=== PATIENT | female | born 1980 | race Caucasian/White ===

== ENCOUNTER → 2017-12-17 | Outpatient (CLI) | payer BC ==
[2017-12-17 14:26] LABS: HCT 37.2 % (34.0-46.0); HGB 12.7 gm/dL (11.4-16.0); MCH 30.5 pg (25.0-35.0); MCHC 34.1 g/dL (31.0-37.0); MCV 89.4 fL (80.0-100.0); Mean Platelet Volume 6.7; Platelet Count 368 k/uL (150-450); RBC 4.16 m/uL (3.80-5.40); RDW 12.3 % (11.5-15.5); WBC 9.2 k/uL (3.8-10.6)
[2017-12-17 14:33] LABS: ALT 28 U/L (9-52); AST 21 U/L (14-36); Alkaline Phosphatase 55 U/L (38-126); Anion Gap 12 mmol/L; Blood Urea Nitrogen 15 mg/dL (7-17); Calcium 9.2 mg/dL (8.4-10.2); Carbon Dioxide 26 mmol/L (22-30); Chloride 105 mmol/L (98-107); Glucose 72 mg/dL (74-99); Potassium 4.1 mmol/L (3.5-5.1); Sodium 143 mmol/L (137-145); Total Bilirubin 0.1 mg/dL (0.2-1.3); Total Protein 6.3 g/dL (6.3-8.2)
[2017-12-17 14:50] LABS: T4, Free (Free Thyroxine) 1.13 ng/dL (0.78-2.19)
== END | disposition home or self-care (01) ==
LOC: LABWHC1 13:55
PROVIDERS: ATTEND Family Medicine
DX: I47.1 Supraventricular tachycardia (principal)
CPT/HCPCS: 36415; 80053; 82533; 84439; 84443; 84481; 85027

== ENCOUNTER 2018-08-03 17:36 | Emergency (ER) | payer OTHER ==
[2018-08-03] MEDS ORDERED: SODIUM CHLORIDE 0.9% 1,000 ML IV ONE (18:25)
--- NOTE | 2018-08-03 18:29 | ED ---
General Adult HPI - General Chief complaint: Chest Pain Stated complaint: Chest Pressure, Dizziness Time Seen by Provider: 08/03/18 18:02 Source: patient, RN notes reviewed, old records reviewed Mode of arrival: ambulatory Limitations: no limitations - History of Present Illness Initial comments: 38-year-old female history of sinus tachycardia, and POTS syndrome presents with complaints of flushed face, not feeling well, generalized weakness, nausea , palpitations. She does have these episodes on somewhat regular basis. She is currently on 10 mg propranolol twice daily. She did take an extra dose of propranolol today. No significant vomiting. No abdominal pain. She has had some associated chest tightness. Patient follows at outside hospital with both electrophysiology and endocrinology. - Related Data Home Medications Medication Instructions Recorded Confirmed Cholecalciferol [Vitamin D3] 1,000 unit PO DAILY 08/03/18 08/03/18 Magnesium 200 mg PO DAILY 08/03/18 08/03/18 Multivitamins, Thera [Multivitamin 1 tab PO DAILY 08/03/18 08/03/18 (formulary)] [place]-3 Fatty Acids [[place]-3] 1,000 mg PO DAILY 08/03/18 08/03/18 Propranolol [Inderal] 10 mg PO BID 08/03/18 08/03/18 Vitamin B Complex 1 cap PO DAILY 08/03/18 08/03/18 Allergies Allergy/AdvReac Type Severity Reaction Status Date / Time Penicillins Allergy Rash/Hives Verified 08/03/18 19:03 bupropion [From Wellbutrin] AdvReac Rapid Verified 08/03/18 19:03 Heart Rate Review of Systems ROS Statement: Those systems with pertinent positive or pertinent negative responses have been documented in the HPI. ROS Other: All systems not noted in ROS Statement are negative. Past Medical History Past Medical History: Hypertension Additional Past Medical History / Comment(s): POTS, SVT History of Any Multi-Drug Resistant Organisms: None Reported Past Surgical History: Section, Tonsillectomy Past Psychological History: No Psychological Hx Reported Smoking Status: Never smoker Past Alcohol Use History: None Reported Past Drug Use History: None Reported General Exam Limitations: no limitations General appearance: alert, in no apparent distress Head exam: Present: atraumatic, normocephalic Eye exam: Present: normal appearance, PERRL, EOMI ENT exam: Present: mucous membranes dry Neck exam: Present: normal inspection. Absent: tenderness, meningismus Respiratory exam: Present: normal lung sounds bilaterally. Absent: respiratory distress, wheezes Cardiovascular Exam: Present: regular rate, normal rhythm GI/Abdominal exam: Present: soft. Absent: distended, tenderness Extremities exam: Present: normal inspection, normal capillary refill. Absent: pedal edema, calf tenderness Neurological exam: Present: alert, oriented X3, CN II-XII intact. Absent: motor sensory deficit Psychiatric exam: Present: normal affect, normal mood Skin exam: Present: warm, dry, intact. Absent: cyanosis, diaphoretic Course Vital Signs 08/03/18 08/03/18 08/03/18 17:43 18:55 19:31 Temperature 99.4 F 99 F 98.5 F Pulse Rate 89 71 70 Respiratory 18 18 18 Rate Blood Pressure 141/100 138/93 122/73 O2 Sat by Pulse 97 97 98 Oximetry EKG Findings - EKG Comments: EKG Findings:: EKG: Normal sinus rhythm, incomplete right bundle-branch block, rate of 75, VT interval 146, QRS duration 98, QTC [address] segment changes. Medical Decision Making - Medical Decision Making 38-year-old female evaluated emergency department, EKG nonischemic and normal CBC, normal CMP, urinalysis negative, cardiac enzymes negative. Chest x-ray negative. After IV hydration, patient's symptoms of dizziness, chest tightness are all improved. She does have close outpatient follow-up with her specialist. She will continue to take her propranolol as prescribed. She will follow-up and return with worsening or changing symptoms. - Lab Data Result diagrams: 08/03/18 18:30 08/03/18 18:30 Lab Results 08/03/18 08/03/18 08/03/18 Range/Units 18:30 18:30 18:30 WBC 8.1 (3.8-10.6) k/uL RBC 4.77 (3.80-5.40) m/uL Hgb 13.7 (11.4-16.0) gm/dL Hct 41.6 (34.0-46.0) % MCV 87.2 (80.0-100.0) fL MCH 28.8 (25.0-35.0) pg MCHC 33.0 (31.0-37.0) g/dL RDW 12.5 (11.5-15.5) % Plt Count 379 (150-450) k/uL Neutrophils % 67 % Lymphocytes % 26 % Monocytes % 3 % Eosinophils % 2 % Basophils % 1 % Neutrophils # 5.4 (1.3-7.7) k/uL Lymphocytes # 2.1 (1.0-4.8) k/uL Monocytes # 0.2 (0-1.0) k/uL Eosinophils # 0.2 (0-0.7) k/uL Basophils # 0.1 (0-0.2) k/uL PT (9.0-12.0) sec INR (<1.2) APTT (22.0-30.0) sec Sodium 142 (137-145) mmol/L Potassium 3.9 (3.5-5.1) mmol/L Chloride 108 H (98-107) mmol/L Carbon Dioxide 25 (22-30) mmol/L Anion Gap 9 mmol/L BUN 10 (7-17) mg/dL Creatinine 0.60 (0.52-1.04) mg/dL Est GFR (CKD-EPI)AfAm >90 (>60 ml/min/1.73 sqM) Est GFR (CKD-EPI)NonAf >90 (>60 ml/min/1.73 sqM) Glucose 106 H (74-99) mg/dL Calcium 10.0 (8.4-10.2) mg/dL Magnesium 2.1 (1.6-2.3) mg/dL Total Bilirubin 0.4 (0.2-1.3) mg/dL AST 29 (14-36) U/L ALT 26 (9-52) U/L Alkaline Phosphatase 52 (38-126) U/L Total Creatine Kinase 64 (30-135) U/L CK-MB (CK-2) 0.3 (0.0-2.4) ng/mL CK-MB (CK-2) Rel Index 0.5 Troponin I <0.012 (0.000-0.034) ng/mL Total Protein 7.6 (6.3-8.2) g/dL Albumin 4.6 (3.5-5.0) g/dL Lipase 123 (23-300) U/L Urine Color Urine Appearance (Clear) Urine pH (5.0-8.0) Ur Specific [place] (1.001-1.035) Urine Protein (Negative) Urine Glucose (UA) (Negative) Urine Ketones (Negative) Urine Blood (Negative) Urine Nitrite (Negative) Urine Bilirubin (Negative) Urine Urobilinogen (<2.0) mg/dL Ur Leukocyte Esterase (Negative) 08/03/18 08/03/18 Range/Units 18:30 18:30 WBC (3.8-10.6) k/uL RBC (3.80-5.40) m/uL Hgb (11.4-16.0) gm/dL Hct (34.0-46.0) % MCV (80.0-100.0) fL MCH (25.0-35.0) pg MCHC (31.0-37.0) g/dL RDW (11.5-15.5) % Plt Count (150-450) k/uL Neutrophils % % Lymphocytes % % Monocytes % % Eosinophils % % Basophils % % Neutrophils # (1.3-7.7) k/uL Lymphocytes # (1.0-4.8) k/uL Monocytes # (0-1.0) k/uL Eosinophils # (0-0.7) k/uL Basophils # (0-0.2) k/uL PT 10.0 (9.0-12.0) sec INR 0.9 (<1.2) APTT 27.1 (22.0-30.0) sec Sodium (137-145) mmol/L Potassium (3.5-5.1) mmol/L Chloride (98-107) mmol/L Carbon Dioxide (22-30) mmol/L Anion Gap mmol/L BUN (7-17) mg/dL Creatinine (0.52-1.04) mg/dL Est GFR (CKD-EPI)AfAm (>60 ml/min/1.73 sqM) Est GFR (CKD-EPI)NonAf (>60 ml/min/1.73 sqM) Glucose (74-99) mg/dL Calcium (8.4-10.2) mg/dL Magnesium (1.6-2.3) mg/dL Total Bilirubin (0.2-1.3) mg/dL AST (14-36) U/L ALT (9-52) U/L Alkaline Phosphatase (38-126) U/L Total Creatine Kinase (30-135) U/L CK-MB (CK-2) (0.0-2.4) ng/mL CK-MB (CK-2) Rel Index Troponin I (0.000-0.034) ng/mL Total Protein (6.3-8.2) g/dL Albumin (3.5-5.0) g/dL Lipase (23-300) U/L Urine Color Colorless Urine Appearance Clear (Clear) Urine pH 7.5 (5.0-8.0) Ur Specific [place] 1.002 (1.001-1.035) Urine Protein Negative (Negative) Urine Glucose (UA) Negative (Negative) Urine Ketones Negative (Negative) Urine Blood Negative (Negative) Urine Nitrite Negative (Negative) Urine Bilirubin Negative (Negative) Urine Urobilinogen <2.0 (<2.0) mg/dL Ur Leukocyte Esterase Negative (Negative) Disposition Clinical Impression: Dehydration, POTS (postural orthostatic tachycardia syndrome) Disposition: HOME SELF-CARE Condition: Good Instructions (If sedation given, give patient instructions): Dehydration (ED) Is patient prescribed a controlled substance at d/c from ED?: No Referrals: Reid Ponce MD [Primary Care Provider] - 1-2 days Time of Disposition: 20:27
[2018-08-03 19:07] LABS: Basophils # (A) 0.1 k/uL (0-0.2); Basophils % (A) 1 %; Eosinophils # (A) 0.2 k/uL (0-0.7); Eosinophils % (A) 2 %; HCT 41.6 % (34.0-46.0); HGB 13.7 gm/dL (11.4-16.0); Lymphocytes # (A) 2.1 k/uL (1.0-4.8); Lymphocytes % (A) 26 %; MCH 28.8 pg (25.0-35.0); MCV 87.2 fL (80.0-100.0); Mean Platelet Volume 6.7; Monocytes # (A) 0.2 k/uL (0-1.0); Monocytes % (A) 3 %; Neutrophils # (A) 5.4 k/uL (1.3-7.7); Neutrophils % (A) 67 %; Platelet Count 379 k/uL (150-450); RBC 4.77 m/uL (3.80-5.40); RDW 12.5 % (11.5-15.5); WBC 8.1 k/uL (3.8-10.6)
[2018-08-03 19:08] LABS: Appearance,Urine Clear (Clear); Bilirubin,Urine Negative (Negative); Blood,Urine Negative (Negative); Color,Urine Colorless; Glucose,Urine (UA) Negative (Negative); Ketones,Urine Negative (Negative); Leukocyte Esterase,Urine Negative (Negative); Nitrite,Urine Negative (Negative); PH, Urine 7.5 (5.0-8.0); Protein,Urine Negative (Negative); Specific Gravity,Urine 1.002 (1.001-1.035); Urobilinogen,Urine <2.0 mg/dL (<2.0)
[2018-08-03 19:16] LABS: Creatine Kinase 64 U/L (30-135)
[2018-08-03 19:18] LABS: ALT 26 U/L (9-52); AST 29 U/L (14-36); Albumin 4.6 g/dL (3.5-5.0); Alkaline Phosphatase 52 U/L (38-126); Anion Gap 9 mmol/L; Blood Urea Nitrogen 10 mg/dL (7-17); Carbon Dioxide 25 mmol/L (22-30); Chloride 108 mmol/L (98-107); Glucose 106 mg/dL (74-99); Lipase 123 U/L (23-300); Magnesium 2.1 mg/dL (1.6-2.3); Potassium 3.9 mmol/L (3.5-5.1); Sodium 142 mmol/L (137-145); Total Bilirubin 0.4 mg/dL (0.2-1.3); Total Protein 7.6 g/dL (6.3-8.2)
[2018-08-03 19:29] LABS: Creatine Kinase MB 0.3 ng/mL (0.0-2.4); Troponin I <0.012 ng/mL (0.000-0.034)
[2018-08-03 19:34] VITALS: TEMP 98.5
[2018-08-03 19:35] LABS: INR 0.9 (<1.2); Partial Thromboplastin Time 27.1 sec (22.0-30.0)
--- NOTE | 2018-08-03 19:57 | XR ---
EXAMINATION: XR chest 2V DATE AND TIME: 08/03/2018 7:07 PM CLINICAL INDICATION: PHH; Chest Pain TECHNIQUE: Departmental protocol COMPARISON: None FINDINGS: The lungs are clear. The pleural spaces are negative. The cardiac silhouette is not enlarged. The remainder of the mediastinal silhouette is unremarkable. The skeletal structures and soft tissues are negative for acute findings. IMPRESSION: NO ACUTE PROCESS.
[2018-08-03 21:11] VITALS: BP 120/81; PULSE 74; RESP 17
== END 2018-08-03 21:11 | disposition home or self-care (01) ==
LOC: EC 17:36
DX: E86.0 Dehydration (principal); I49.8 Other specified cardiac arrhythmias; R07.89 Other chest pain; R42 Dizziness and giddiness; I10 Essential (primary) hypertension; Z79.899 Other long term (current) drug therapy; Z88.0 Allergy status to penicillin; Z88.8 Allergy status to other drugs, medicaments and biological substances
CPT/HCPCS: 36415; 71046; 80053; 81003; 82550; 82553; 83520; 83690; 83735; 84484; 85025; 85610; 85730; 93005; 96360; 96361; 99285

== ENCOUNTER 2018-08-07 19:01 | Emergency (ER) | payer OTHER ==
[2018-08-07 19:09] VITALS: TEMP 99.1
[2018-08-07] MEDS ORDERED: ACETAMINOPHEN TAB 325 MG TAB PO STA (19:14)
--- NOTE | 2018-08-07 19:31 | XR ---
EXAMINATION TYPE: XR chest 2V DATE OF EXAM: 08/07/2018 COMPARISON: NONE HISTORY: Short of breath TECHNIQUE: Frontal and lateral views of the chest are obtained. FINDINGS: Heart and mediastinum are normal. Lungs are clear. Diaphragm is normal. Bony thorax appear s normal. IMPRESSION: Normal chest.
[2018-08-07] MEDS ORDERED: SODIUM CHLORIDE 0.9% 1,000 ML IV ONE (19:42)
[2018-08-07 20:18] LABS: Basophils # (A) 0.1 k/uL (0-0.2); Basophils % (A) 1 %; Eosinophils # (A) 0.2 k/uL (0-0.7); Eosinophils % (A) 3 %; HCT 39.6 % (34.0-46.0); HGB 12.5 gm/dL (11.4-16.0); Lymphocytes # (A) 1.4 k/uL (1.0-4.8); Lymphocytes % (A) 16 %; MCH 27.5 pg (25.0-35.0); MCHC 31.5 g/dL (31.0-37.0); MCV 87.3 fL (80.0-100.0); Mean Platelet Volume 6.1; Monocytes # (A) 0.4 k/uL (0-1.0); Monocytes % (A) 4 %; Neutrophils # (A) 6.5 k/uL (1.3-7.7); Neutrophils % (A) 75 %; Platelet Count 346 k/uL (150-450); RBC 4.53 m/uL (3.80-5.40); RDW 12.3 % (11.5-15.5); WBC 8.7 k/uL (3.8-10.6)
[2018-08-07 20:28] LABS: ALT 34 U/L (9-52); AST 32 U/L (14-36); Albumin 4.3 g/dL (3.5-5.0); Alkaline Phosphatase 45 U/L (38-126); Anion Gap 7 mmol/L; Blood Urea Nitrogen 8 mg/dL (7-17); Calcium 9.5 mg/dL (8.4-10.2); Carbon Dioxide 25 mmol/L (22-30); Chloride 105 mmol/L (98-107); Glucose 107 mg/dL (74-99); Potassium 4.7 mmol/L (3.5-5.1); Sodium 137 mmol/L (137-145); Total Bilirubin 0.6 mg/dL (0.2-1.3); Total Protein 7.1 g/dL (6.3-8.2)
[2018-08-07] MEDS ORDERED: OSELTAMIVIR 75 MG CAP PO STA (20:34)
--- NOTE | 2018-08-07 20:47 | ED ---
URI HPI - General Chief Complaint: Upper Respiratory Infection Stated Complaint: SOB/high heart rate Time Seen by Provider: 08/07/18 19:14 Source: patient Mode of arrival: ambulatory Limitations: no limitations - History of Present Illness Initial Comments: 38-year-old female past history of pots disorder as a day for chief complaint of sore throat, congestion, elevated heart rate. Patient states she has been diagnosed with POTS syndrome. She is really scheduled with endocrinology as well as a POTs specialist at [facility] in [place]. Patient states she has struggled with elevated heart rate since diagnosis. Patient also admits to having chest pressure, elevated heart rate as well as elevated blood pressure readings are not since her diagnosis. Patient denies any changes in the pressure. Patient states that for the past 2-3 days she has been experiencing cough, congestion, sore throat as well as elevation of heart rate that seemed increase from baseline. Patient amidst chills, does not know having fever however states she felt warm. Remainder of ROS negative, patient denies any dyspnea, dyspnea on exertion, lower extremity edema, hemoptysis, hematemesis, vomiting, doubt pain, nausea, vomiting, diarrhea, headache, increasing dizziness. Upon arrival patient is well-appearing, heart rate and blood pressure elevated. Patient does have low-grade fever. - Related Data Home Medications Medication Instructions Recorded Confirmed Cholecalciferol [Vitamin D3] 1,000 unit PO DAILY 08/03/18 08/07/18 Magnesium 200 mg PO DAILY 08/03/18 08/07/18 Propranolol [Inderal] 10 mg PO BID 08/03/18 08/07/18 Vitamin B Complex 1 cap PO DAILY 08/03/18 08/07/18 Allergies Allergy/AdvReac Type Severity Reaction Status Date / Time Penicillins Allergy Rash/Hives Verified 08/07/18 19:48 bupropion [From Wellbutrin] AdvReac Rapid Verified 08/07/18 19:48 Heart Rate Review of Systems ROS Statement: Those systems with pertinent positive or pertinent negative responses have been documented in the HPI. ROS Other: All systems not noted in ROS Statement are negative. Past Medical History Past Medical History: Hypertension Additional Past Medical History / Comment(s): POTS, SVT History of Any Multi-Drug Resistant Organisms: None Reported Past Surgical History: Section, Tonsillectomy Past Psychological History: No Psychological Hx Reported Smoking Status: Never smoker Past Alcohol Use History: None Reported Past Drug Use History: None Reported General Exam - General Exam Comments Initial Comments: General: The patient is awake and alert, in no distress, and does not appear acutely ill. Eye: Pupils are equal, round and reactive to light, extra-ocular movements are intact. No nystagmus. There is normal conjunctiva bilaterally. No signs of icterus. Ears, nose, mouth and throat: There are moist mucous membranes and no oral lesions. Pharynx mildly erythematous. Uvula midline. No anterior cervical adenopathy. Post nasal drip present. Nasal congestion noted Neck: The neck is supple, there is no tenderness or JVD. Cardiovascular: There is a regular rate and rhythm. No murmur, rub or gallop is appreciated. Respiratory: Lungs are clear to auscultation, respirations are non-labored, breath sounds are equal. No wheezes, stridor, rales, or rhonchi. Gastrointestinal: Soft, non-distended, non-tender abdomen without masses or organomegaly noted. There is no rebound or guarding present. No CVA tenderness. Bowel sounds are unremarkable. Musculoskeletal: Normal ROM, no tenderness. Strength 5/5. Sensation intact. Pulses equal bilaterally 2+. Neurological: A&O x 3. CN II-XII intact, There are no obvious motor or sensory deficits. Coordination appears grossly intact. Speech is normal. Skin: Skin is warm and dry and no rashes or lesions are noted. (-) [place]. No LE edema. Psychiatric: Cooperative, appropriate mood & affect, normal judgment. Limitations: no limitations Course Vital Signs 08/07/18 08/07/18 19:05 21:49 Temperature 99.1 F Pulse Rate 102 H 88 Respiratory 20 18 Rate Blood Pressure 158/97 144/92 O2 Sat by Pulse 100 98 Oximetry Medical Decision Making - Medical Decision Making Patient influenza a positive. This is consistent with increased elevation of heart rate most likely due to fever at home. Patient given fluid bolus. Patient appears well, chest x-ray negative. Laboratory studies unremarkable. No elevation of white count. Patient does not appear toxic. Patient states after fluid bolus symptoms feel better, she was also given Tylenol. At this time I do feel patient is stable for discharge with outpatient Intermedic treatment treatment or influenza. Patient prescription plan. Patient refuses take Tamiflu. Patient discharged stable condition after discussing case with attending provider Dr. Govea - Lab Data Result diagrams: 08/07/18 20:09 08/07/18 20:09 Lab Results 08/07/18 08/07/18 08/07/18 Range/Units 19:50 20:09 20:09 WBC 8.7 (3.8-10.6) k/uL RBC 4.53 (3.80-5.40) m/uL Hgb 12.5 (11.4-16.0) gm/dL Hct 39.6 (34.0-46.0) % MCV 87.3 (80.0-100.0) fL MCH 27.5 (25.0-35.0) pg MCHC 31.5 (31.0-37.0) g/dL RDW 12.3 (11.5-15.5) % Plt Count 346 (150-450) k/uL Neutrophils % 75 % Lymphocytes % 16 % Monocytes % 4 % Eosinophils % 3 % Basophils % 1 % Neutrophils # 6.5 (1.3-7.7) k/uL Lymphocytes # 1.4 (1.0-4.8) k/uL Monocytes # 0.4 (0-1.0) k/uL Eosinophils # 0.2 (0-0.7) k/uL Basophils # 0.1 (0-0.2) k/uL Sodium 137 (137-145) mmol/L Potassium 4.7 (3.5-5.1) mmol/L Chloride 105 (98-107) mmol/L Carbon Dioxide 25 (22-30) mmol/L Anion Gap 7 mmol/L BUN 8 (7-17) mg/dL Creatinine 0.59 (0.52-1.04) mg/dL Est GFR (CKD-EPI)AfAm >90 (>60 ml/min/1.73 sqM) Est GFR (CKD-EPI)NonAf >90 (>60 ml/min/1.73 sqM) Glucose 107 H (74-99) mg/dL Calcium 9.5 (8.4-10.2) mg/dL Total Bilirubin 0.6 (0.2-1.3) mg/dL AST 32 (14-36) U/L ALT 34 (9-52) U/L Alkaline Phosphatase 45 (38-126) U/L Troponin I (0.000-0.034) ng/mL Total Protein 7.1 (6.3-8.2) g/dL Albumin 4.3 (3.5-5.0) g/dL Influenza Type A RNA Detected H (Not Detectd) Influenza Type B (PCR) Not Detected (Not Detectd) 08/07/18 Range/Units 20:09 WBC (3.8-10.6) k/uL RBC (3.80-5.40) m/uL Hgb (11.4-16.0) gm/dL Hct (34.0-46.0) % MCV (80.0-100.0) fL MCH (25.0-35.0) pg MCHC (31.0-37.0) g/dL RDW (11.5-15.5) % Plt Count (150-450) k/uL Neutrophils % % Lymphocytes % % Monocytes % % Eosinophils % % Basophils % % Neutrophils # (1.3-7.7) k/uL Lymphocytes # (1.0-4.8) k/uL Monocytes # (0-1.0) k/uL Eosinophils # (0-0.7) k/uL Basophils # (0-0.2) k/uL Sodium (137-145) mmol/L Potassium (3.5-5.1) mmol/L Chloride (98-107) mmol/L Carbon Dioxide (22-30) mmol/L Anion Gap mmol/L BUN (7-17) mg/dL Creatinine (0.52-1.04) mg/dL Est GFR (CKD-EPI)AfAm (>60 ml/min/1.73 sqM) Est GFR (CKD-EPI)NonAf (>60 ml/min/1.73 sqM) Glucose (74-99) mg/dL Calcium (8.4-10.2) mg/dL Total Bilirubin (0.2-1.3) mg/dL AST (14-36) U/L ALT (9-52) U/L Alkaline Phosphatase (38-126) U/L Troponin I <0.012 (0.000-0.034) ng/mL Total Protein (6.3-8.2) g/dL Albumin (3.5-5.0) g/dL Influenza Type A RNA (Not Detectd) Influenza Type B (PCR) (Not Detectd) - EKG Data EKG Comments: A 12-lead EKG was performed and shows the following: Rate is 90bpm, and rhythm is normal sinus. There is normal R-wave progression. ST segments have no elevation or depression, and ND segments appear normal. Incompleted RBBB redemonstrated no changes from previous EKG, no changes 08/03/18. Disposition Clinical Impression: Influenza A, POTS (postural orthostatic tachycardia syndrome) Disposition: HOME SELF-CARE Condition: Good Instructions (If sedation given, give patient instructions): Influenza (ED) Additional Instructions: Please use medication as discussed. Please follow-up with family doctor in the next 2 days. Please follow-up with both Endocrine and POTS physicians as currently scheduled. Please return to emergency room if the symptoms increase or worsen or for any other concerns. Is patient prescribed a controlled substance at d/c from ED?: No Referrals: None,Stated [Primary Care Provider] - 1-2 days Josie Davis MD [STAFF PHYSICIAN] - 1-2 days Time of Disposition: 20:47
[2018-08-07 21:50] VITALS: PULSE 88; RESP 18
[2018-08-07 21:55] VITALS: BP 144/92
== END 2018-08-07 21:49 | disposition home or self-care (01) ==
LOC: EC 19:01
DX: J10.1 Influenza due to other identified influenza virus with other respiratory manifestations (principal); I49.8 Other specified cardiac arrhythmias; I10 Essential (primary) hypertension; Z79.899 Other long term (current) drug therapy; Z88.0 Allergy status to penicillin; Z88.8 Allergy status to other drugs, medicaments and biological substances
CPT/HCPCS: 36415; 71046; 80053; 84484; 85025; 87502; 93005; 96360; 99285

== ENCOUNTER 2019-02-28 23:14 | Emergency (ER) | payer OTHER ==
--- NOTE | 2019-02-28 23:32 | ED ---
General Adult HPI - General Stated complaint: tachycardia,high bp Time Seen by Provider: 02/28/19 23:16 Source: patient Mode of arrival: ambulatory Limitations: no limitations - History of Present Illness Initial comments: This patient is a 39-year-old woman who presents because she noted that she was having tachycardia and elevated blood pressure at home. The patient states that she has POTS. She states that it has recently started flaring up and she gets these exact manifestations as well as having feelings like she is having waves of adrenaline come over her. She tried using her home medications and when there was no relief she presented here. She states that in the past she has had pretty good results after obtaining IV fluids. -: hour(s) - Related Data Home Medications Medication Instructions Recorded Confirmed Cholecalciferol [Vitamin D3] 1,000 unit PO DAILY 08/03/18 08/07/18 Magnesium 200 mg PO DAILY 08/03/18 08/07/18 Propranolol [Inderal] 10 mg PO BID 08/03/18 08/07/18 Vitamin B Complex 1 cap PO DAILY 08/03/18 08/07/18 Allergies Allergy/AdvReac Type Severity Reaction Status Date / Time Penicillins Allergy Rash/Hives Verified 08/07/18 19:48 bupropion [From Wellbutrin] AdvReac Rapid Verified 08/07/18 19:48 Heart Rate Review of Systems ROS Statement: Those systems with pertinent positive or pertinent negative responses have been documented in the HPI. ROS Other: All systems not noted in ROS Statement are negative. Constitutional: Denies: fever, chills Respiratory: Denies: cough, dyspnea Cardiovascular: Reports: palpitations. Denies: chest pain, dyspnea on exertion, orthopnea, edema, syncope Gastrointestinal: Denies: abdominal pain, nausea, vomiting Genitourinary: Denies: dysuria, hematuria Musculoskeletal: Denies: back pain Skin: Denies: rash Neurological: Denies: headache, weakness, numbness Psychiatric: Reports: anxiety Past Medical History Past Medical History: Hypertension Additional Past Medical History / Comment(s): POTS, SVT History of Any Multi-Drug Resistant Organisms: None Reported Past Surgical History: Section, Tonsillectomy Past Psychological History: No Psychological Hx Reported Smoking Status: Never smoker Past Alcohol Use History: None Reported Past Drug Use History: None Reported General Exam General appearance: alert, in no apparent distress Head exam: Present: atraumatic, normocephalic Eye exam: Present: normal appearance. Absent: scleral icterus, conjunctival injection ENT exam: Present: mucous membranes dry Neck exam: Present: normal inspection Respiratory exam: Present: normal lung sounds bilaterally. Absent: respiratory distress, wheezes, rales, rhonchi, stridor Cardiovascular Exam: Present: regular rate, normal rhythm, normal heart sounds. Absent: systolic murmur, diastolic murmur, rubs, gallop GI/Abdominal exam: Present: soft. Absent: distended, tenderness, guarding, rebound Extremities exam: Present: normal inspection, normal capillary refill. Absent: pedal edema, calf tenderness Back exam: Present: normal inspection Neurological exam: Present: alert Skin exam: Present: warm, dry, intact, normal color. Absent: rash Course Vital Signs 02/28/19 02/28/19 03/01/19 23:16 23:45 00:20 Temperature 98.2 F Pulse Rate 97 90 87 Pulse Rate [ 95 Spray I Painter ] Respiratory 20 18 20 Rate Blood Pressure 130/94 117/78 O2 Sat by Pulse 100 98 100 Oximetry 03/01/19 01:40 Temperature 98.3 F Pulse Rate 84 Pulse Rate [ Spray I Painter ] Respiratory 18 Rate Blood Pressure 129/70 O2 Sat by Pulse 99 Oximetry EKG Findings - EKG Comments: EKG Findings:: Low-voltage QRS complex - EKG Results: EKG: sinus rhythm (Rate 96 bpm), normal axis - Blocks, [place], Hypertrophy, ST Abn: AV and intraventricular conduction: right bundle branch block (fixed/intermittent, complete/incomplete) (Incomplete right bundle branch block) Repolarization changes or abnormalities: nonspecific abnormality, ST segment, and/or T wave Medical Decision Making - Medical Decision Making Patient is feeling better following fluid infusion and requests to go home. Vital signs and studies are stable. Patient to follow-up with her primary physi wiliam. - Lab Data Result diagrams: 02/28/19 23:41 02/28/19 23:41 Lab Results 02/28/19 02/28/19 Range/Units 23:41 23:41 WBC 10.8 H (3.8-10.6) k/uL RBC 4.23 (3.80-5.40) m/uL Hgb 12.5 (11.4-16.0) gm/dL Hct 36.5 (34.0-46.0) % MCV 86.3 (80.0-100.0) fL MCH 29.5 (25.0-35.0) pg MCHC 34.2 (31.0-37.0) g/dL RDW 12.7 (11.5-15.5) % Plt Count 342 (150-450) k/uL Neutrophils % 62 % Lymphocytes % 30 % Monocytes % 5 % Eosinophils % 1 % Basophils % 1 % Neutrophils # 6.7 (1.3-7.7) k/uL Lymphocytes # 3.2 (1.0-4.8) k/uL Monocytes # 0.6 (0-1.0) k/uL Eosinophils # 0.1 (0-0.7) k/uL Basophils # 0.1 (0-0.2) k/uL Sodium 139 (137-145) mmol/L Potassium 3.8 (3.5-5.1) mmol/L Chloride 106 (98-107) mmol/L Carbon Dioxide 26 (22-30) mmol/L Anion Gap 7 mmol/L BUN 11 (7-17) mg/dL Creatinine 0.60 (0.52-1.04) mg/dL Est GFR (CKD-EPI)AfAm >90 (>60 ml/min/1.73 sqM) Est GFR (CKD-EPI)NonAf >90 (>60 ml/min/1.73 sqM) Glucose 112 H (74-99) mg/dL Calcium 9.1 (8.4-10.2) mg/dL Magnesium 1.9 (1.6-2.3) mg/dL Total Bilirubin 0.1 L (0.2-1.3) mg/dL AST 22 (14-36) U/L ALT 16 (9-52) U/L Alkaline Phosphatase 74 (38-126) U/L Total Protein 6.8 (6.3-8.2) g/dL Albumin 4.1 (3.5-5.0) g/dL Disposition Clinical Impression: Palpitations Disposition: HOME SELF-CARE Condition: Good Instructions (If sedation given, give patient instructions): Heart Palpitations (ED) Is patient prescribed a controlled substance at d/c from ED?: No Referrals: Kerline Aragon DO [Primary Care Provider] - 1-2 days
[2019-02-28] MEDS ORDERED: SODIUM CHLORIDE 0.9% 2,000 ML IV ONE (23:44)
[2019-03-01 00:03] LABS: Basophils # (A) 0.1 k/uL (0-0.2); Basophils % (A) 1 %; Eosinophils # (A) 0.1 k/uL (0-0.7); Eosinophils % (A) 1 %; HCT 36.5 % (34.0-46.0); HGB 12.5 gm/dL (11.4-16.0); Lymphocytes # (A) 3.2 k/uL (1.0-4.8); Lymphocytes % (A) 30 %; MCH 29.5 pg (25.0-35.0); MCHC 34.2 g/dL (31.0-37.0); MCV 86.3 fL (80.0-100.0); Mean Platelet Volume 6.8; Monocytes # (A) 0.6 k/uL (0-1.0); Monocytes % (A) 5 %; Neutrophils # (A) 6.7 k/uL (1.3-7.7); Neutrophils % (A) 62 %; Platelet Count 342 k/uL (150-450); RBC 4.23 m/uL (3.80-5.40); RDW 12.7 % (11.5-15.5); WBC 10.8 k/uL (3.8-10.6)
[2019-03-01 00:12] LABS: ALT 16 U/L (9-52); AST 22 U/L (14-36); African American GFR (CKD) >90 (>60 ml/min/1.73 sqM); Albumin 4.1 g/dL (3.5-5.0); Alkaline Phosphatase 74 U/L (38-126); Anion Gap 7 mmol/L; Blood Urea Nitrogen 11 mg/dL (7-17); Calcium 9.1 mg/dL (8.4-10.2); Carbon Dioxide 26 mmol/L (22-30); Chloride 106 mmol/L (98-107); Glucose 112 mg/dL (74-99); Magnesium 1.9 mg/dL (1.6-2.3); Non-African American GFR(CKD) >90 (>60 ml/min/1.73 sqM); Potassium 3.8 mmol/L (3.5-5.1); Sodium 139 mmol/L (137-145); Total Bilirubin 0.1 mg/dL (0.2-1.3); Total Protein 6.8 g/dL (6.3-8.2)
[2019-03-01 01:42] VITALS: BP 129/70; PULSE 84; RESP 18; TEMP 98.3
== END 2019-03-01 01:42 | disposition home or self-care (01) ==
LOC: EC 23:14
DX: R00.2 Palpitations (principal); R00.0 Tachycardia, unspecified; I10 Essential (primary) hypertension; Z79.899 Other long term (current) drug therapy; Z88.0 Allergy status to penicillin; Z88.8 Allergy status to other drugs, medicaments and biological substances
CPT/HCPCS: 36415; 80053; 83735; 85025; 93005; 96360; 96361; 99285

== ENCOUNTER 2019-03-06 18:59 | Emergency (ER) | payer OTHER ==
[2019-03-06 19:04] VITALS: TEMP 98
[2019-03-06] MEDS ORDERED: SODIUM CHLORIDE 0.9% 1,000 ML IV STA (19:31)
[2019-03-06 20:03] LABS: Basophils # (A) 0.1 k/uL (0-0.2); Basophils % (A) 1 %; Eosinophils # (A) 0.1 k/uL (0-0.7); Eosinophils % (A) 1 %; HCT 41.2 % (34.0-46.0); HGB 13.8 gm/dL (11.4-16.0); Lymphocytes # (A) 4.4 k/uL (1.0-4.8); Lymphocytes % (A) 39 %; MCH 29.1 pg (25.0-35.0); MCHC 33.5 g/dL (31.0-37.0); MCV 86.8 fL (80.0-100.0); Mean Platelet Volume 6.8; Monocytes # (A) 0.5 k/uL (0-1.0); Monocytes % (A) 4 %; Neutrophils # (A) 6.1 k/uL (1.3-7.7); Neutrophils % (A) 54 %; Platelet Count 368 k/uL (150-450); RBC 4.74 m/uL (3.80-5.40); RDW 12.9 % (11.5-15.5); WBC 11.4 k/uL (3.8-10.6)
[2019-03-06 20:12] LABS: ALT 22 U/L (9-52); AST 21 U/L (14-36); African American GFR (CKD) >90 (>60 ml/min/1.73 sqM); Albumin 4.5 g/dL (3.5-5.0); Alkaline Phosphatase 53 U/L (38-126); Anion Gap 10 mmol/L; Blood Urea Nitrogen 14 mg/dL (7-17); Carbon Dioxide 29 mmol/L (22-30); Chloride 102 mmol/L (98-107); Glucose 96 mg/dL (74-99); Non-African American GFR(CKD) >90 (>60 ml/min/1.73 sqM); Potassium 4.5 mmol/L (3.5-5.1); Sodium 141 mmol/L (137-145); Total Bilirubin 0.3 mg/dL (0.2-1.3); Total Protein 7.6 g/dL (6.3-8.2)
[2019-03-06 20:19] LABS: Appearance,Urine Clear (Clear); Bilirubin,Urine Negative (Negative); Blood,Urine Negative (Negative); Color,Urine Colorless; Glucose,Urine (UA) Negative (Negative); Ketones,Urine Negative (Negative); Leukocyte Esterase,Urine Negative (Negative); Nitrite,Urine Negative (Negative); Protein,Urine Negative (Negative); Specific Gravity,Urine 1.001 (1.001-1.035); Urobilinogen,Urine <2.0 mg/dL (<2.0)
[2019-03-06] MEDS ORDERED: LORazepam 2 MG/ML INJ IV STA (20:28)
[2019-03-06] MEDS ORDERED: LORazepam 1 MG TAB PO STA (20:43)
[2019-03-06] MEDS ORDERED: SODIUM CHLORIDE 0.9% 500 ML 500 ML IV ONE (20:43)
--- NOTE | 2019-03-06 22:51 | ED ---
General Adult HPI - General Source: patient Mode of arrival: wheelchair Limitations: no limitations <Livier Resendez - Last Filed: 03/06/19 22:51> <Vielka Boyle - Last Filed: 03/07/19 01:20> - General Chief complaint: Dizziness Stated complaint: Dizzy/Syncope Time Seen by Provider: 03/06/19 19:11 - History of Present Illness Initial comments: 39-year-old female patient who reports past medical history significant for postural orthostatic hypertension presents to the emergency department today for evaluation of dizziness, racing heart, and near syncope. Patient states that she has been dealing with this syndrome over the last year. States over the last 2-3 weeks her symptoms have been worsening. Patient states that she takes a combination of Valium, clonidine, and oral fluids to manage her symptoms. Patient states that today and out of her medications were working so she presented here. States that at times she does feel chest pressure. Denies any nausea or vomiting. Denies any abdominal pain, constipation, or diarrhea. Patient states that she has seen a specialist at [facility] has appointment with a new specialist at the [facility] at the end of March. Patient denies any recent rash, shortness breath, abdominal pain, diarrhea, constipation, back pain, numbness, tingling, hematuria, dysuria, urinary urgency, urinary frequency, or any other complaints. (Livier Resendez) - Related Data Home Medications Medication Instructions Recorded Confirmed Diazepam [Valium] 5 mg PO BID PRN 03/06/19 03/06/19 LORazepam [Ativan] 1 mg PO BID PRN 03/06/19 03/06/19 cloNIDine HCL [Catapres] 0.05 mg PO BID 03/06/19 03/06/19 Allergies Allergy/AdvReac Type Severity Reaction Status Date / Time moxifloxacin [From Avelox] Allergy Unknown Verified 03/06/19 22:30 Penicillins Allergy Rash/Hives Verified 03/06/19 22:30 bupropion [From Wellbutrin] AdvReac Rapid Verified 03/06/19 22:30 Heart Rate Review of Systems ROS Other: All systems not noted in ROS Statement are negative. <Livier Resendez - Last Filed: 03/06/19 22:51> ROS Other: All systems not noted in ROS Statement are negative. <Vielka Boyle P - Last Filed: 03/07/19 01:20> ROS Statement: Those systems with pertinent positive or pertinent negative responses have been documented in the HPI. Past Medical History Past Medical History: Hypertension Additional Past Medical History / Comment(s): POTS, SVT History of Any Multi-Drug Resistant Organisms: None Reported Past Surgical History: Section, Tonsillectomy Past Psychological History: No Psychological Hx Reported Smoking Status: Never smoker Past Alcohol Use History: None Reported Past Drug Use History: None Reported <Livier Resendez M - Last Filed: 03/06/19 22:51> General Exam Limitations: no limitations General appearance: alert, in no apparent distress, other (This is a well- developed, well-nourished adult female patient in mild distress related to symptoms. Vital signs upon presentation are temperature 98.0F, pulse 79, respirations 18, blood pressure 133/85, pulse ox 100% on room air.) Eye exam: Present: normal appearance, PERRL, EOMI. Absent: scleral icterus, conjunctival injection, periorbital swelling ENT exam: Present: normal exam, normal oropharynx, mucous membranes moist Respiratory exam: Present: normal lung sounds bilaterally. Absent: respiratory distress, wheezes, rales, rhonchi, stridor Cardiovascular Exam: Present: regular rate, normal rhythm, normal heart sounds. Absent: systolic murmur, diastolic murmur, rubs, gallop, clicks GI/Abdominal exam: Present: soft, normal bowel sounds. Absent: distended, tenderness, guarding, rebound, rigid Neurological exam: Present: alert, oriented X3, CN II-XII intact, other (S trength in all 4 extremities is 5/5) Psychiatric exam: Present: normal affect, normal mood Skin exam: Present: warm, dry, intact, normal color. Absent: rash <Livier Resendez M - Last Filed: 03/06/19 22:51> Course Vital Signs 03/06/19 03/06/19 03/06/19 19:03 20:15 20:30 Temperature 98.0 F Pulse Rate 79 131 H 98 Respiratory 18 15 Rate Blood Pressure 133/85 169/87 O2 Sat by Pulse 100 96 Oximetry 03/06/19 03/06/19 03/06/19 21:00 21:30 22:00 Temperature Pulse Rate 103 H 101 H 86 Respiratory 15 12 14 Rate Blood Pressure 122/97 146/87 163/77 O2 Sat by Pulse 96 100 98 Oximetry 03/06/19 03/06/19 22:30 23:00 Temperature Pulse Rate 98 75 Respiratory 19 16 Rate Blood Pressure 123/79 126/80 O2 Sat by Pulse 98 98 Oximetry EKG Findings - EKG Comments: EKG Findings:: EKG obtained at 1958 shows normal sinus rhythm with an incomplete right bundle branch block. Ventricular rate is 88, NE interval 148, QR methodist 102, QT 378, QTC 457. No evidence of ST elevation or depression. EKG obtained at 2029 shows sinus tachycardia with a ventricular rate of 101, NE interval 122, QRS duration 92, QT 356, QTc 461. No evidence of ST elevation or depression. <Livier Resendez - Last Filed: 03/06/19 22:51> Medical Decision Making - Lab Data Result diagrams: 03/06/19 19:45 03/06/19 19:45 <Livier Resendez - Last Filed: 03/06/19 22:51> - Lab Data Result diagrams: 03/06/19 19:45 03/06/19 19:45 <Vielka Boyle - Last Filed: 03/07/19 01:20> - Medical Decision Making 39-year-old female patient presents to the emergency department today for evaluation of near-syncope, dizziness, and racing heart. Physical examination is unremarkable. Heart sounds are regular and within normal range. Lungs are clear to auscultation with good air movement. Abdomen soft and nontender. Labs reviewed and are unremarkable. EKG showed sinus rhythm. She was monitored and did have an episode where her heart rate went to the 130s and 150s. Patient was quite anxious at the time, she reports it is the way she was feeling. She was given an additional IV fluids and Ativan. Upon reevaluation her rate is in the 80s. She is symptom-free. She'll be discharged at this time to follow-up with her primary care physician and her specialist that she has planned. Return parameters were discussed in detail patient verbalizes understanding and agrees with this plan. (Livier Resendez) I'm personally saw and evaluated this patient. At time of evaluation patient was hemodynamically stable, heart rate in the 80s, blood pressure stable 120s over 80s. Patient discussed multiple months of symptoms and plan to follow up with the [facility] metabolic specialist from [facility]. At this time I do not feel there is any emergent medical condition requiring admission to the hospital, patient is agreeable. All questions pertaining to care were answered to the best of my ability, the importance of follow-up with primary care and cardiology as planned was discussed, return parameters discussed patient was discharged home in stable condition. (Vielka Boyle) - Lab Data Lab Results 03/06/19 03/06/19 03/06/19 Range/Units 19:45 19:45 19:45 WBC 11.4 H (3.8-10.6) k/uL RBC 4.74 (3.80-5.40) m/uL Hgb 13.8 (11.4-16.0) gm/dL Hct 41.2 (34.0-46.0) % MCV 86.8 (80.0-100.0) fL MCH 29.1 (25.0-35.0) pg MCHC 33.5 (31.0-37.0) g/dL RDW 12.9 (11.5-15.5) % Plt Count 368 (150-450) k/uL Neutrophils % 54 % Lymphocytes % 39 % Monocytes % 4 % Eosinophils % 1 % Basophils % 1 % Neutrophils # 6.1 (1.3-7.7) k/uL Lymphocytes # 4.4 (1.0-4.8) k/uL Monocytes # 0.5 (0-1.0) k/uL Eosinophils # 0.1 (0-0.7) k/uL Basophils # 0.1 (0-0.2) k/uL Sodium 141 (137-145) mmol/L Potassium 4.5 (3.5-5.1) mmol/L Chloride 102 (98-107) mmol/L Carbon Dioxide 29 (22-30) mmol/L Anion Gap 10 mmol/L BUN 14 (7-17) mg/dL Creatinine 0.70 (0.52-1.04) mg/dL Est GFR (CKD-EPI)AfAm >90 (>60 ml/min/1.73 sqM) Est GFR (CKD-EPI)NonAf >90 (>60 ml/min/1.73 sqM) Glucose 96 (74-99) mg/dL Calcium 10.0 (8.4-10.2) mg/dL Magnesium 2.0 (1.6-2.3) mg/dL Total Bilirubin 0.3 (0.2-1.3) mg/dL AST 21 (14-36) U/L ALT 22 (9-52) U/L Alkaline Phosphatase 53 (38-126) U/L Troponin I <0.012 (0.000-0.034) ng/mL Total Protein 7.6 (6.3-8.2) g/dL Albumin 4.5 (3.5-5.0) g/dL TSH 2.040 (0.465-4.680) mIU/L Cortisol 7 ug/dL Urine Color Urine Appearance (Clear) Urine pH (5.0-8.0) Ur Specific [place] (1.001-1.035) Urine Protein (Negative) Urine Glucose (UA) (Negative) Urine Ketones (Negative) Urine Blood (Negative) Urine Nitrite (Negative) Urine Bilirubin (Negative) Urine Urobilinogen (<2.0) mg/dL Ur Leukocyte Esterase (Negative) 03/06/19 Range/Units 20:10 WBC (3.8-10.6) k/uL RBC (3.80-5.40) m/uL Hgb (11.4-16.0) gm/dL Hct (34.0-46.0) % MCV (80.0-100.0) fL MCH (25.0-35.0) pg MCHC (31.0-37.0) g/dL RDW (11.5-15.5) % Plt Count (150-450) k/uL Neutrophils % % Lymphocytes % % Monocytes % % Eosinophils % % Basophils % % Neutrophils # (1.3-7.7) k/uL Lymphocytes # (1.0-4.8) k/uL Monocytes # (0-1.0) k/uL Eosinophils # (0-0.7) k/uL Basophils # (0-0.2) k/uL Sodium (137-145) mmol/L Potassium (3.5-5.1) mmol/L Chloride (98-107) mmol/L Carbon Dioxide (22-30) mmol/L Anion Gap mmol/L BUN (7-17) mg/dL Creatinine (0.52-1.04) mg/dL Est GFR (CKD-EPI)AfAm (>60 ml/min/1.73 sqM) Est GFR (CKD-EPI)NonAf (>60 ml/min/1.73 sqM) Glucose (74-99) mg/dL Calcium (8.4-10.2) mg/dL Magnesium (1.6-2.3) mg/dL Total Bilirubin (0.2-1.3) mg/dL AST (14-36) U/L ALT (9-52) U/L Alkaline Phosphatase (38-126) U/L Troponin I (0.000-0.034) ng/mL Total Protein (6.3-8.2) g/dL Albumin (3.5-5.0) g/dL TSH (0.465-4.680) mIU/L Cortisol ug/dL Urine Color Colorless Urine Appearance Clear (Clear) Urine pH 7.0 (5.0-8.0) Ur Specific [place] 1.001 (1.001-1.035) Urine Protein Negative (Negative) Urine Glucose (UA) Negative (Negative) Urine Ketones Negative (Negative) Urine Blood Negative (Negative) Urine Nitrite Negative (Negative) Urine Bilirubin Negative (Negative) Urine Urobilinogen <2.0 (<2.0) mg/dL Ur Leukocyte Esterase Negative (Negative) Disposition Is patient prescribed a controlled substance at d/c from ED?: No Time of Disposition: 22:51 <Livier Resendez M - Last Filed: 03/06/19 22:51> <Vielka Boyle - Last Filed: 03/07/19 01:20> Clinical Impression: Palpitations, Dizziness Disposition: HOME SELF-CARE Condition: Good Instructions (If sedation given, give patient instructions): Heart Palpitations (ED), Dizziness (ED), Tachycardia (ED) Additional Instructions: Continue home medications and fluid regimen as prescribed by your physician. Follow-up with your primary care physician for recheck in 1-2 days. Follow-up with your specialist as you have planned. Return to the emergency department immediately for any new, worsening, or concerning symptoms. Referrals: Kerline Aragon DO [Primary Care Provider] - 1-2 days
[2019-03-06 23:11] VITALS: BP 126/80; PULSE 75; RESP 16
== END 2019-03-06 23:12 | disposition home or self-care (01) ==
LOC: EC 18:59
DX: R42 Dizziness and giddiness (principal); R00.2 Palpitations; R07.89 Other chest pain; I10 Essential (primary) hypertension; Z88.0 Allergy status to penicillin; Z88.1 Allergy status to other antibiotic agents; Z88.8 Allergy status to other drugs, medicaments and biological substances; Z79.899 Other long term (current) drug therapy
CPT/HCPCS: 36415; 80053; 81003; 82533; 83735; 84443; 84484; 85025; 93005; 96360; 99284

== ENCOUNTER → 2019-03-09 | Outpatient (CLI) | payer OTHER | END | disposition home or self-care (01) | LOC: LABWHC1 16:30 | PROVIDERS: ATTEND Family Medicine | DX: I49.8 Other specified cardiac arrhythmias (principal); D72.829 Elevated white blood cell count, unspecified | CPT/HCPCS: 36415; 83090; 86141; 87040 ==

== ENCOUNTER 2019-03-27 20:03 | Emergency (ER) | payer OTHER ==
[2019-03-27 20:10] VITALS: TEMP 98.3
[2019-03-27] MEDS ORDERED: SODIUM CHLORIDE 0.9% 2,000 ML IV ONE (21:33)
--- NOTE | 2019-03-27 21:43 | ED ---
General Adult HPI - General Chief complaint: Arrhythmia/Palpitations Stated complaint: SOB Time Seen by Provider: 03/27/19 20:41 Source: patient, family, RN notes reviewed, old records reviewed Mode of arrival: ambulatory Limitations: no limitations - History of Present Illness Initial comments: Chief complaint and history of present illness this is a 39-year-old female here with a complaint of having tachycardia and elevated blood pressure. The patient states that she has POTS. She did take an extra clonidine and Ativan. She states what works best treatment is IV fluids. Patient reports she saw some 12 pounds over the last several weeks because when she eats or drinks fluids she urinates more than she drinks. She is trying to keep the head but feels as though she is losing more fluids and she is putting in. - Related Data Home Medications Medication Instructions Recorded Confirmed LORazepam [Ativan] 1 mg PO BID PRN 03/06/19 03/27/19 cloNIDine HCL [Catapres] 0.05 mg PO QID 03/06/19 03/27/19 Allergies Allergy/AdvReac Type Severity Reaction Status Date / Time moxifloxacin [From Avelox] Allergy Unknown Verified 03/27/19 20:24 Penicillins Allergy Rash/Hives Verified 03/27/19 20:24 Sulfa (Sulfonamide Allergy Verified 03/27/19 20:24 Antibiotics) bupropion [From Wellbutrin] AdvReac Unknown Verified 03/27/19 20:24 Review of Systems ROS Statement: Those systems with pertinent positive or pertinent negative responses have been documented in the HPI. Review of systems. The patient denies any headache or visual acuity changes. States that when her blood pressure goes up her heart rate goes up she feels dizzy. Denies nausea at this time. Tries increase her fluid intake but urinates twice as much. Patient denies any chest pain or shortness of breath. No neuro deficits. All systems are reviewed. Past medical problems significant for POTS. This is also associated with SVT. The patient's surgeries include tonsillectomy and C-sections. Denies smoking denies drinking. Family history noncontributory. ROS Other: All systems not noted in ROS Statement are negative. Past Medical History Past Medical History: Hypertension Additional Past Medical History / Comment(s): POTS, SVT History of Any Multi-Drug Resistant Organisms: None Reported Past Surgical History: Section, Tonsillectomy Past Psychological History: No Psychological Hx Reported Smoking Status: Never smoker Past Alcohol Use History: None Reported Past Drug Use History: None Reported General Exam - General Exam Comments Initial Comments: General: The patient is awake and alert, presents feeling and looking anxious. The patient took an Ativan and clonidine just prior to arrival to emergency room. Her initial vital signs showed a pulse of 107 respiratory rate 26, blood pressure 158/122 pulse ox 99% room air with an afebrile temperature of 98.3.. Eye: Pupils are equal, round and reactive to light, extra-ocular movements are intact; there is normal conjunctiva bilaterally. No signs of icterus. Ears, nose, mouth and throat: There are moist mucous membranes and no oral lesions. Neck: The neck is supple, there is no tenderness. Cardiovascular: Initial examination found tachycardic heart rate. No murmur appreciated. Repeat examination found heart rate to be 90.. Respiratory: Lungs are clear to auscultation, respirations are non-labored, breath sounds are equal. No wheezes, stridor, rales, or rhonchi. Gastrointestinal: Soft, non-distended, non-tender abdomen without masses or organomegaly noted. There is no rebound or guarding present. No CVA tenderness. Bowel sounds are unremarkable. Back: No back pain Musculoskeletal: Normal ROM, no tenderness, There is no pedal edema. There is no calf tenderness or swelling. Sensation intact. Pulses equal bilaterally 2+. Neurological: No neuro deficits Skin: Skin is warm and dry and no rashes or lesions are noted. Psychiatric: Cooperative, complains of depression Limitations: no limitations Course Vital Signs 03/27/19 03/27/19 20:05 21:58 Temperature 98.3 F Pulse Rate 107 H 84 Respiratory 26 H 20 Rate Blood Pressure 158/122 129/86 O2 Sat by Pulse 99 99 Oximetry EKG Findings - EKG Comments: EKG Findings:: EKG was done at 2020 hrs. showing normal sinus rhythm. Rate 90 ER was 142 QRS 92 QT 356, QTC 435. Acute ST elevation no ectopy. Dr. Lorenz Medical Decision Making - Medical Decision Making Medical decision making; this is a 39-year-old female who hasPOTS disease. She presents emergency room today with elevated heart rate and blood pressure. Patient reports that the treatment for her is IV fluids. She reports despite the fact that she drinks a large amount of fluid she urinates even more. Prior to emergency room visit she took Ativan and clonidine. This helped her blood pressure and heart rate down. Patient's labs show white count of 10 hemoglobin 13 hematocrit 39 with a potassium 4.6. The patient's BUN 13 creatinine 0.6 with a GFR greater than 90. Glucose 145. Troponin less than 0.012 Patient received approximately 1500 ML's normal saline and requested to be discharged. Patient states she has to go home for an issue with her dog. Patient reports feeling much better. She'll be discharged home advised to continue with home medications and follow up with her specialist. Otherwise return emergency room as needed no signs on discharge is stable - Lab Data Result diagrams: 03/27/19 21:43 03/27/19 21:43 Lab Results 03/27/19 03/27/19 03/27/19 Range/Units 21:43 21:43 21:43 WBC 10.3 (3.8-10.6) k/uL RBC 4.53 (3.80-5.40) m/uL Hgb 13.4 (11.4-16.0) gm/dL Hct 39.6 (34.0-46.0) % MCV 87.5 (80.0-100.0) fL MCH 29.5 (25.0-35.0) pg MCHC 33.7 (31.0-37.0) g/dL RDW 14.1 (11.5-15.5) % Plt Count 379 (150-450) k/uL Neutrophils % 65 % Lymphocytes % 28 % Monocytes % 4 % Eosinophils % 1 % Basophils % 1 % Neutrophils # 6.7 (1.3-7.7) k/uL Lymphocytes # 2.9 (1.0-4.8) k/uL Monocytes # 0.4 (0-1.0) k/uL Eosinophils # 0.1 (0-0.7) k/uL Basophils # 0.1 (0-0.2) k/uL Sodium 139 (137-145) mmol/L Potassium 4.6 (3.5-5.1) mmol/L Chloride 105 (98-107) mmol/L Carbon Dioxide 24 (22-30) mmol/L Anion Gap 10 mmol/L BUN 13 (7-17) mg/dL Creatinine 0.67 (0.52-1.04) mg/dL Est GFR (CKD-EPI)AfAm >90 (>60 ml/min/1.73 sqM) Est GFR (CKD-EPI)NonAf >90 (>60 ml/min/1.73 sqM) Glucose 145 H (74-99) mg/dL Calcium 9.6 (8.4-10.2) mg/dL Total Bilirubin 0.2 (0.2-1.3) mg/dL AST 26 (14-36) U/L ALT 15 (9-52) U/L Alkaline Phosphatase 52 (38-126) U/L Troponin I <0.012 (0.000-0.034) ng/mL Total Protein 7.4 (6.3-8.2) g/dL Albumin 4.4 (3.5-5.0) g/dL Disposition Clinical Impression: POTS (postural orthostatic tachycardia syndrome) Disposition: HOME SELF-CARE Condition: Good Is patient prescribed a controlled substance at d/c from ED?: No Referrals: Liset Ramírez MD [Primary Care Provider] - 1-2 days Time of Disposition: 23:30
[2019-03-27 21:58] LABS: Basophils # (A) 0.1 k/uL (0-0.2); Basophils % (A) 1 %; Eosinophils # (A) 0.1 k/uL (0-0.7); Eosinophils % (A) 1 %; HCT 39.6 % (34.0-46.0); HGB 13.4 gm/dL (11.4-16.0); Lymphocytes # (A) 2.9 k/uL (1.0-4.8); Lymphocytes % (A) 28 %; MCH 29.5 pg (25.0-35.0); MCHC 33.7 g/dL (31.0-37.0); MCV 87.5 fL (80.0-100.0); Monocytes # (A) 0.4 k/uL (0-1.0); Monocytes % (A) 4 %; Neutrophils # (A) 6.7 k/uL (1.3-7.7); Neutrophils % (A) 65 %; Platelet Count 379 k/uL (150-450); RBC 4.53 m/uL (3.80-5.40); RDW 14.1 % (11.5-15.5); WBC 10.3 k/uL (3.8-10.6)
[2019-03-27 22:07] LABS: ALT 15 U/L (9-52); AST 26 U/L (14-36); African American GFR (CKD) >90 (>60 ml/min/1.73 sqM); Albumin 4.4 g/dL (3.5-5.0); Alkaline Phosphatase 52 U/L (38-126); Anion Gap 10 mmol/L; Blood Urea Nitrogen 13 mg/dL (7-17); Calcium 9.6 mg/dL (8.4-10.2); Carbon Dioxide 24 mmol/L (22-30); Chloride 105 mmol/L (98-107); Glucose 145 mg/dL (74-99); Sodium 139 mmol/L (137-145); Total Bilirubin 0.2 mg/dL (0.2-1.3); Total Protein 7.4 g/dL (6.3-8.2)
[2019-03-27 22:27] LABS: Potassium 4.6 mmol/L (3.5-5.1)
[2019-03-27 23:32] VITALS: BP 123/77; PULSE 73; RESP 18
== END 2019-03-27 23:39 | disposition home or self-care (01) ==
LOC: EC 20:03
DX: I49.8 Other specified cardiac arrhythmias (principal); R00.0 Tachycardia, unspecified; I10 Essential (primary) hypertension; Z79.899 Other long term (current) drug therapy; Z88.0 Allergy status to penicillin; Z88.2 Allergy status to sulfonamides; Z88.1 Allergy status to other antibiotic agents; Z88.8 Allergy status to other drugs, medicaments and biological substances; Z86.79 Personal history of other diseases of the circulatory system
CPT/HCPCS: 36415; 80053; 84484; 85025; 93005; 96360; 96361; 99285

== ENCOUNTER 2019-03-29 22:13 | Observation (INO) | payer OTHER ==
[2019-03-29] MEDS ORDERED: SODIUM CHLORIDE 0.9% 1,000 ML IV STA ×2 (22:54)
[2019-03-29] MEDS ORDERED: SODIUM CHLORIDE 0.9% 500 ML 500 ML IV STA (22:54)
--- NOTE | 2019-03-29 23:08 | ED ---
Dizziness HPI - General Stated Complaint: Chest Pain Time Seen by Provider: 03/29/19 22:35 Source: RN notes reviewed, old records reviewed Limitations: no limitations - History of Present Illness Initial Comments: This is a 39-year-old female the ER for evaluation presents today for evaluation regards to not feeling well dizziness lightheadedness and elevated blood pressure tachycardia, patient passed out. She has no history of similar issues in symptoms. Patient states she does not feel well. She did have a sense of impending doom. Patient states upon arrival to ER symptoms are mildly improved anxious take clonidine and Xanax as needed and an outpatient basis for controlling of symptoms. Unsure of cause of patient's symptoms, patient did have long-term loop recorder implanted which was nonspecific for SVTs, tachycardia syndrome. At this time patient denies any chest pain. No abdominal pain. No recent or significant diaphoresis or urination. Mild nausea no vomiting diaphoretic lightheaded and dizzy and feeling like she may pass out. MD Complaint: dizziness, lightheadedness, near syncope -: month(s) Timing: gradual onset Description: lightheadedness History of Same: Yes History of Trauma: No Severity: severe Improves With: rehydration, rest Worsens With: movement, position, exertion Associated Symptoms: weakness - Related Data Home Medications Medication Instructions Recorded Confirmed LORazepam [Ativan] 1 mg PO BID PRN 03/06/19 03/29/19 cloNIDine HCL [Catapres] 0.05 mg PO QID 03/06/19 03/29/19 Allergies Allergy/AdvReac Type Severity Reaction Status Date / Time moxifloxacin [From Avelox] Allergy Unknown Verified 03/29/19 22:19 Penicillins Allergy Rash/Hives Verified 03/29/19 22:19 Sulfa (Sulfonamide Allergy Verified 03/29/19 22:19 Antibiotics) bupropion [From Wellbutrin] AdvReac Unknown Verified 03/29/19 22:19 Review of Systems ROS Statement: Those systems with pertinent positive or pertinent negative responses have been documented in the HPI. ROS Other: All systems not noted in ROS Statement are negative. Past Medical History Past Medical History: Hypertension Additional Past Medical History / Comment(s): POTS, SVT History of Any Multi-Drug Resistant Organisms: None Reported Past Surgical History: Section, Tonsillectomy Past Psychological History: No Psychological Hx Reported Smoking Status: Never smoker Past Alcohol Use History: None Reported Past Drug Use History: None Reported General Exam General appearance: alert, in no apparent distress, anxious Head exam: Present: atraumatic, normocephalic, normal inspection Eye exam: Present: normal appearance, PERRL, EOMI. Absent: scleral icterus, conjunctival injection, periorbital swelling ENT exam: Present: normal exam, mucous membranes moist Neck exam: Present: normal inspection. Absent: tenderness, meningismus, lymphadenopathy Respiratory exam: Present: normal lung sounds bilaterally. Absent: respiratory distress, wheezes, rales, rhonchi, stridor Cardiovascular Exam: Present: regular rate, normal rhythm, normal heart sounds. Absent: systolic murmur, diastolic murmur, rubs, gallop, clicks GI/Abdominal exam: Present: soft, normal bowel sounds. Absent: distended, tenderness, guarding, rebound, rigid Extremities exam: Present: normal inspection, full ROM, normal capillary refill. Absent: tenderness, pedal edema, joint swelling, calf tenderness Back exam: Present: normal inspection Neurological exam: Present: alert, oriented X3, CN II-XII intact Psychiatric exam: Present: normal affect, normal mood Skin exam: Present: warm, dry, intact, normal color. Absent: rash Course Vital Signs 03/29/19 23:07 Temperature 98.5 F Pulse Rate 95 Respiratory 18 Rate Blood Pressure 131/86 O2 Sat by Pulse 100 Oximetry - Reevaluation(s) Reevaluation #1: 03/30/19 00:45 Medical records reviewed Reevaluation #2: 03/30/19 00:45 Patient symptoms are mildly improved here in the ED - Consultations Consultation #1: Spoke with Dr. Bowen regarding admission, he is agreeable EKG Findings - EKG Comments: EKG Findings:: EKG shows sinus arrhythmia recently, MN 150, QRS 94, QTC 447 Medical Decision Making - Medical Decision Making 39 female the ER for evaluation of acute on chronic disease. Patient is positive disease, significantly near syncopal currently. N near syncopal and dizzy, will admit for continued fluid resuscitation and cardiac monitoring - Lab Data Result diagrams: 03/29/19 23:36 03/29/19 23:36 Lab Results 03/29/19 03/29/19 03/29/19 Range/Units 23:36 23:36 23:36 WBC (3.8-10.6) k/uL RBC (3.80-5.40) m/uL Hgb (11.4-16.0) gm/dL Hct (34.0-46.0) % MCV (80.0-100.0) fL MCH (25.0-35.0) pg MCHC (31.0-37.0) g/dL RDW (11.5-15.5) % Plt Count (150-450) k/uL Neutrophils % % Lymphocytes % % Monocytes % % Eosinophils % % Basophils % % Neutrophils # (1.3-7.7) k/uL Lymphocytes # (1.0-4.8) k/uL Monocytes # (0-1.0) k/uL Eosinophils # (0-0.7) k/uL Basophils # (0-0.2) k/uL Sodium 142 (137-145) mmol/L Potassium 3.9 (3.5-5.1) mmol/L Chloride 105 (98-107) mmol/L Carbon Dioxide 26 (22-30) mmol/L Anion Gap 11 mmol/L BUN 10 (7-17) mg/dL Creatinine 0.62 (0.52-1.04) mg/dL Est GFR (CKD-EPI)AfAm >90 (>60 ml/min/1.73 sqM) Est GFR (CKD-EPI)NonAf >90 (>60 ml/min/1.73 sqM) Glucose 141 H (74-99) mg/dL Osmolality 293 (280-301) mosm/kg Plasma Lactic Acid Art (0.7-2.0) mmol/L Calcium 9.8 (8.4-10.2) mg/dL Ionized Calcium Chris 5.2 (4.5-5.3) mg/dL Phosphorus 3.2 (2.5-4.5) mg/dL Magnesium 2.0 (1.6-2.3) mg/dL Total Bilirubin 0.2 (0.2-1.3) mg/dL AST 21 (14-36) U/L ALT 10 (9-52) U/L Alkaline Phosphatase 57 (38-126) U/L Creatine Kinase 43 (30-135) U/L Troponin I (0.000-0.034) ng/mL NT-Pro-B Natriuret Pep pg/mL Total Protein 7.3 (6.3-8.2) g/dL Albumin 4.4 (3.5-5.0) g/dL TSH 1.980 (0.465-4.680) mIU/L Cortisol 12 ug/dL Urine Color Colorless Urine Appearance Clear (Clear) Urine pH 7.0 (5.0-8.0) Ur Specific [place] 1.003 (1.001-1.035) Urine Protein Negative (Negative) Urine Glucose (UA) Negative (Negative) Urine Ketones Negative (Negative) Urine Blood Negative (Negative) Urine Nitrite Negative (Negative) Urine Bilirubin Negative (Negative) Urine Urobilinogen <2.0 (<2.0) mg/dL Ur Leukocyte Esterase Negative (Negative) Urine Osmolality 135 (50-1400) mosm/kg 03/29/19 03/29/19 03/29/19 Range/Units 23:36 23:36 23:36 WBC 14.7 H (3.8-10.6) k/uL RBC 4.46 (3.80-5.40) m/uL Hgb 13.1 (11.4-16.0) gm/dL Hct 38.6 (34.0-46.0) % MCV 86.5 (80.0-100.0) fL MCH 29.3 (25.0-35.0) pg MCHC 33.9 (31.0-37.0) g/dL RDW 14.7 (11.5-15.5) % Plt Count 332 (150-450) k/uL Neutrophils % 82 % Lymphocytes % 14 % Monocytes % 3 % Eosinophils % 0 % Basophils % 0 % Neutrophils # 12.0 H (1.3-7.7) k/uL Lymphocytes # 2.0 (1.0-4.8) k/uL Monocytes # 0.5 (0-1.0) k/uL Eosinophils # 0.1 (0-0.7) k/uL Basophils # 0.1 (0-0.2) k/uL Sodium (137-145) mmol/L Potassium (3.5-5.1) mmol/L Chloride (98-107) mmol/L Carbon Dioxide (22-30) mmol/L Anion Gap mmol/L BUN (7-17) mg/dL Creatinine (0.52-1.04) mg/dL Est GFR (CKD-EPI)AfAm (>60 ml/min/1.73 sqM) Est GFR (CKD-EPI)NonAf (>60 ml/min/1.73 sqM) Glucose (74-99) mg/dL Osmolality (280-301) mosm/kg Plasma Lactic Acid Art 0.9 (0.7-2.0) mmol/L Calcium (8.4-10.2) mg/dL Ionized Calcium Chris (4.5-5.3) mg/dL Phosphorus (2.5-4.5) mg/dL Magnesium (1.6-2.3) mg/dL Total Bilirubin (0.2-1.3) mg/dL AST (14-36) U/L ALT (9-52) U/L Alkaline Phosphatase (38-126) U/L Creatine Kinase (30-135) U/L Troponin I (0.000-0.034) ng/mL NT-Pro-B Natriuret Pep 19 pg/mL Total Protein (6.3-8.2) g/dL Albumin (3.5-5.0) g/dL TSH (0.465-4.680) mIU/L Cortisol ug/dL Urine Color Urine Appearance (Clear) Urine pH (5.0-8.0) Ur Specific [place] (1.001-1.035) Urine Protein (Negative) Urine Glucose (UA) (Negative) Urine Ketones (Negative) Urine Blood (Negative) Urine Nitrite (Negative) Urine Bilirubin (Negative) Urine Urobilinogen (<2.0) mg/dL Ur Leukocyte Esterase (Negative) Urine Osmolality (50-1400) mosm/kg 03/29/19 Range/Units 23:36 WBC (3.8-10.6) k/uL RBC (3.80-5.40) m/uL Hgb (11.4-16.0) gm/dL Hct (34.0-46.0) % MCV (80.0-100.0) fL MCH (25.0-35.0) pg MCHC (31.0-37.0) g/dL RDW (11.5-15.5) % Plt Count (150-450) k/uL Neutrophils % % Lymphocytes % % Monocytes % % Eosinophils % % Basophils % % Neutrophils # (1.3-7.7) k/uL Lymphocytes # (1.0-4.8) k/uL Monocytes # (0-1.0) k/uL Eosinophils # (0-0.7) k/uL Basophils # (0-0.2) k/uL Sodium (137-145) mmol/L Potassium (3.5-5.1) mmol/L Chloride (98-107) mmol/L Carbon Dioxide (22-30) mmol/L Anion Gap mmol/L BUN (7-17) mg/dL Creatinine (0.52-1.04) mg/dL Est GFR (CKD-EPI)AfAm (>60 ml/min/1.73 sqM) Est GFR (CKD-EPI)NonAf (>60 ml/min/1.73 sqM) Glucose (74-99) mg/dL Osmolality (280-301) mosm/kg Plasma Lactic Acid Art (0.7-2.0) mmol/L Calcium (8.4-10.2) mg/dL Ionized Calcium Chris (4.5-5.3) mg/dL Phosphorus (2.5-4.5) mg/dL Magnesium (1.6-2.3) mg/dL Total Bilirubin (0.2-1.3) mg/dL AST (14-36) U/L ALT (9-52) U/L Alkaline Phosphatase (38-126) U/L Creatine Kinase (30-135) U/L Troponin I <0.012 (0.000-0.034) ng/mL NT-Pro-B Natriuret Pep pg/mL Total Protein (6.3-8.2) g/dL Albumin (3.5-5.0) g/dL TSH (0.465-4.680) mIU/L Cortisol ug/dL Urine Color Urine Appearance (Clear) Urine pH (5.0-8.0) Ur Specific [place] (1.001-1.035) Urine Protein (Negative) Urine Glucose (UA) (Negative) Urine Ketones (Negative) Urine Blood (Negative) Urine Nitrite (Negative) Urine Bilirubin (Negative) Urine Urobilinogen (<2.0) mg/dL Ur Leukocyte Esterase (Negative) Urine Osmolality (50-1400) mosm/kg Disposition Clinical Impression: Palpitations, Dizziness, POTS (postural orthostatic tachycardia syndrome), Dehydration Disposition: ADMITTED IP TO THIS HOSP Condition: Fair Is patient prescribed a controlled substance at d/c from ED?: No Referrals: Liset Ramírez MD [Primary Care Provider] - 1-2 days
[2019-03-29 23:55] LABS: Appearance,Urine Clear (Clear); Basophils # (A) 0.1 k/uL (0-0.2); Basophils % (A) 0 %; Bilirubin,Urine Negative (Negative); Blood,Urine Negative (Negative); Color,Urine Colorless; Eosinophils # (A) 0.1 k/uL (0-0.7); Eosinophils % (A) 0 %; Glucose,Urine (UA) Negative (Negative); HCT 38.6 % (34.0-46.0); HGB 13.1 gm/dL (11.4-16.0); Ketones,Urine Negative (Negative); Leukocyte Esterase,Urine Negative (Negative); Lymphocytes % (A) 14 %; MCH 29.3 pg (25.0-35.0); MCHC 33.9 g/dL (31.0-37.0); MCV 86.5 fL (80.0-100.0); Mean Platelet Volume 7.1; Monocytes # (A) 0.5 k/uL (0-1.0); Monocytes % (A) 3 %; Neutrophils % (A) 82 %; Nitrite,Urine Negative (Negative); Platelet Count 332 k/uL (150-450); Protein,Urine Negative (Negative); RBC 4.46 m/uL (3.80-5.40); RDW 14.7 % (11.5-15.5); Specific Gravity,Urine 1.003 (1.001-1.035); Urobilinogen,Urine <2.0 mg/dL (<2.0); WBC 14.7 k/uL (3.8-10.6)
[2019-03-30 00:01] LABS: Ionized Calcium 5.2 mg/dL (4.5-5.3)
[2019-03-30 00:07] LABS: ALT 10 U/L (9-52); AST 21 U/L (14-36); African American GFR (CKD) >90 (>60 ml/min/1.73 sqM); Albumin 4.4 g/dL (3.5-5.0); Alkaline Phosphatase 57 U/L (38-126); Anion Gap 11 mmol/L; Blood Urea Nitrogen 10 mg/dL (7-17); Calcium 9.8 mg/dL (8.4-10.2); Carbon Dioxide 26 mmol/L (22-30); Chloride 105 mmol/L (98-107); Creatine Kinase 43 U/L (30-135); Glucose 141 mg/dL (74-99); Phosphorus 3.2 mg/dL (2.5-4.5); Potassium 3.9 mmol/L (3.5-5.1); Sodium 142 mmol/L (137-145); Total Bilirubin 0.2 mg/dL (0.2-1.3); Total Protein 7.3 g/dL (6.3-8.2)
[2019-03-30] MEDS ORDERED: SODIUM CHLORIDE 0.9% 1,000 ML IV ONE (00:43)
[2019-03-30] MEDS ORDERED: cloNIDine 0.1 MG/24HR PATCH TRANSDERM SCH (01:00)
[2019-03-30] MEDS ORDERED: cloNIDine HCL 0.1 MG TAB PO STA (10:25)
[2019-03-30] MEDS: LORazepam 0.5 MG TAB PO PRN ×2 (10:31→18:43)
--- NOTE | 2019-03-30 11:20 | XR ---
EXAMINATION TYPE: XR chest 2V DATE OF EXAM: 03/30/2019 COMPARISON: Chest x-ray August 07, 2018. He shared HISTORY: Dizziness and weakness. TECHNIQUE: Frontal and lateral views of the chest are obtained. FINDINGS: Anterior chest wall loop recorder is removed in the interval. Overlying EKG leads are now s een. There is no focal air space opacity, pleural effusion, or pneumothorax seen. The cardiac silhou ette size is within normal limits. The osseous structures are intact. IMPRESSION: No acute cardiopulmonary process.
--- NOTE | 2019-03-30 14:06 | P.CRDCN ---
History of Present Illness History of present illness: This is a pleasant 39-year-old female past medical history significant for postural orthostatic tachycardia syndrome, hypertension and paroxysmal SVT. She follows with a technician submarine cable equipment out of [facility] in [place] and an EP physician out of [place]. She has an appointment with Dr. Stanford who is a POTS specialist in [place] the end of this month. She states she has been diagnosed with POTS approximately 2 years ago. Up until around 5 months ago she has been managing somewhat well. Currently she uses a 0.1 mg clonidine patch which seemed to work in the past. However, she has had frequent episodes of orthostatic tachycardia and hypertension. She states her symptoms seem to be associated and exacerbated by oral intake. Shortly after eating she feels flushed, palpitat ions, dizzy and a subsequent severe headache. Once the tachycardia subsides the headache and dizziness persists. She take PRN clondine during this episode. She has been given fluid boluses in the ED and her symptoms currently have improved. She denies chest pain, shortness of breath, nausea, vomiting or diaphoresis. She recently underwent an outpatient echo with her PCP that was reported as normal. She has undergone Tilt table testing in the past at the time of her diagnosis. EKG reveals sinus mechanism with an incomplete right bundle branch block. Normal axis with no acute ST or T wave abnormalities noted. Telemetry tracings reviewed and reveal sinus mechanism. Chest x-ray is negative for an acute cardiopulmonary process. Laboratory data reviewed, WBC 14.7, hemoglobin 13.1, platelets 332, sodium 142, potassium 3.9, creatinine 0.62, magnesium 2.0, TSH 1.98, proBNP 19 and cardiac enzymes negative 1. Current daily cardiac medications include clonidine patch 0.1 mg every 7 days. At the time of my exam: CONSTITUTIONAL: Denies fever. Denies chills. EYES: Denies blurred vision. Denies vision changes. Denies eye pain. EARS, NOSE, MOUTH & THROAT: Denies headache. Denies sore throat. Denies ear pain. CARDIOVASCULAR: Denies chest pain. Denies shortness of breath. Denies orthopnea. Denies PND. Denies palpitations. RESPIRATORY: Denies cough. GASTROINTESTINAL: Denies abdominal pain. Denies diarrhea. Denies constipation. Denies nausea. Denies vomiting. MUSCULOSKELETAL: Denies myalgias. INTEGUMENTARY: Denies pruitis. Denies rash. NEUROLOGIC: Denies numbness. Denies tingling. Denies weakness. Complains of headache and dizziness. PSYCHIATRIC: Denies anxiety. Denies depression. ENDOCRINE: Denies fatigue. Denies weight change. Denies polydipsia. Denies polyurina. GENITOURINARY: Denies burning, hematuria or urgency with micturation. HEMATOLOGIC: Denies history of anemia. Denies bleeding. Blood pressure 129/66 heart rate 94 afebrile maintaining oxygen saturation on room air GENERAL: This is a 39-year-old female in no apparent distress at the time of my examination. HEENT: Head is atraumatic, normocephalic. Pupils are equal, round. Sclerae anicteric. Conjunctivae are clear. Mucous membranes of the mouth are moist. Neck is supple. There is no jugular venous distention. No carotid bruit is heard. LUNGS: Clear to auscultation no wheezes, rales or rhonchi. No chest wall tenderness is noted on palpation or with deep breathing. HEART: Regular rate and rhythm without murmurs, rubs or gallops. S1 and S2 heard. ABDOMEN: Soft, nontender. Bowel sounds are heard. No organomegaly noted. EXTREMITIES: No evidence of peripheral edema and no calf tenderness noted. VASCULAR: Radial and dorsalis pedis pulses palpated, no evidence of clubbing. NEUROLOGIC: Patient is awake, alert and oriented x3. ASSESSMENT Postural orthostatic tachycardia syndrome, symptomatic Headache Leukocytosis PLAN Continue with IV fluid infusion. Discussed with the patient the difficulty in treating this disorder and routine fluid infusions will decrease the episodes and duration of exacerbations. Recommend that she keep her appointment in [place] for POTS expert evaluation. Continue to monitor telemetry tracings for evidence of underlying arrhythmia. Thank you kindly for this consultation. Nurse Practitioner note has been reviewed, I agree with a documented findings and plan of care. Patient was seen and examined. Past Medical History Past Medical History: Hypertension Additional Past Medical History / Comment(s): POTS, SVT History of Any Multi-Drug Resistant Organisms: None Reported Past Surgical History: Section, Tonsillectomy Additional Past Anesthesia/Blood Transfusion Reaction / Comment(s): POTS diagnosis Past Psychological History: No Psychological Hx Reported Smoking Status: Never smoker Past Alcohol Use History: None Reported Past Drug Use History: None Reported - Past Family History Mother Family Medical History: CVA/TIA, Myocardial Infarction ([place]), Renal Disease Additional Family Medical History / Comment(s): PVD Father History Unknown: Yes Medications and Allergies Home Medications Medication Instructions Recorded Confirmed Type LORazepam [Ativan] 1 mg PO BID PRN 03/06/19 03/29/19 History cloNIDine HCL [Catapres] 0.05 mg PO QID 03/06/19 03/29/19 History Allergies Allergy/AdvReac Type Severity Reaction Status Date / Time moxifloxacin [From Avelox] Allergy Unknown Verified 03/29/19 22:19 Penicillins Allergy Rash/Hives Verified 03/29/19 22:19 Sulfa (Sulfonamide Allergy Verified 03/29/19 22:19 Antibiotics) bupropion [From Wellbutrin] AdvReac Unknown Verified 03/29/19 22:19 Physical Exam Vitals: Vital Signs Temp Pulse Pulse Resp BP BP BP 03/30/19 10:33 94 129/66 03/30/19 07:30 76 17 03/30/19 07:00 98.5 F 76 17 109/69 03/30/19 01:48 98.2 F 79 18 101/65 03/30/19 01:14 116/62 03/29/19 23:07 98.5 F 95 18 131/86 Pulse Ox 03/30/19 10:33 03/30/19 07:30 03/30/19 07:00 98 03/30/19 01:48 99 03/30/19 01:14 98 03/29/19 23:07 100 Intake and Output 03/29/19 03/30/19 03/30/19 22:59 06:59 14:59 Intake Total 1350 Balance 1350 Intake: Intake, IV Titration 1350 Amount Sodium Chloride 0.9% 1, 350 000 ml @ 100 mls/hr IV . Q10H ONE Rx#:[id number] Sodium Chloride 0.9% 1, 1000 000 ml @ 999 mls/hr IV . Q1H1M STA Rx#:[id number] Other: Voiding Method Toilet Toilet # Voids 2 Weight 78.018 kg Results 03/29/19 23:36 03/29/19 23:36 Cardiac Enzymes 03/29/19 03/29/19 Range/Units 23:36 23:36 AST 21 (14-36) U/L Troponin I <0.012 (0.000-0.034) ng/mL CBC 03/29/19 Range/Units 23:36 WBC 14.7 H (3.8-10.6) k/uL RBC 4.46 (3.80-5.40) m/uL Hgb 13.1 (11.4-16.0) gm/dL Hct 38.6 (34.0-46.0) % Plt Count 332 (150-450) k/uL Comprehensive Metabolic Panel 03/29/19 Range/Units 23:36 Sodium 142 (137-145) mmol/L Potassium 3.9 (3.5-5.1) mmol/L Chloride 105 (98-107) mmol/L Carbon Dioxide 26 (22-30) mmol/L BUN 10 (7-17) mg/dL Creatinine 0.62 (0.52-1.04) mg/dL Glucose 141 H (74-99) mg/dL Calcium 9.8 (8.4-10.2) mg/dL AST 21 (14-36) U/L ALT 10 (9-52) U/L Alkaline Phosphatase 57 (38-126) U/L Total Protein 7.3 (6.3-8.2) g/dL Albumin 4.4 (3.5-5.0) g/dL Current Medications Generic Name Dose Route Start Last Admin Trade Name Freq PRN Reason Stop Dose Admin Clonidine HCl 1 patch 03/30/19 01:00 03/30/19 01:10 Catapres-Tts 0.1mg Patch TRANSDERM 1 patch Q7D FILIBERTO Administration Lorazepam 0.5 mg 03/30/19 10:24 03/30/19 10:31 Ativan PO 0.5 mg Q6H PRN Administration Anxiety Intake and Output 03/29/19 03/30/19 03/30/19 22:59 06:59 14:59 Intake Total 1350 Balance 1350 Intake: Intake, IV Titration 1350 Amount Sodium Chloride 0.9% 1, 350 000 ml @ 100 mls/hr IV . Q10H ONE Rx#:[id number] Sodium Chloride 0.9% 1, 1000 000 ml @ 999 mls/hr IV . Q1H1M STA Rx#:[id number] Other: Voiding Method Toilet Toilet # Voids 2 Weight 78.018 kg 03/29/19 23:36 03/29/19 23:36
--- NOTE | 2019-03-30 14:07 | P.CNNES ---
History of Present Illness Consult date: 03/30/19 Requesting physician: Keaton Bowen Reason for Consult: POTS Chief complaint: POTS not under control History of Present Illness: This is a 39 RH female with a diagnosis of POTS by cardiology EP. Her usual triggers are physical stress such as illness and menses. She manages her symptoms with clonidine and lorazepam. Her loop recorder was recently taken out due to an infection. She states that despite the extensive monitoring, no life threatening arrhythmias were found except for 5 beats of Vtach that was attributed to patient being tapered off of propranolol too quickly. She believes the recent issues with her loop recorder triggered the current worsening of her POTS symptoms. She is concerned about needing to take more and more clonidine and lorazepam, which is not a long-term solution. She states that when she is very dizzy, she gets headache, blurred vision in both eyes and feels almost as if she would go into a seizure. She has already undergone an extensive medical work-up including endocrine testing to r/o pheochromocytoma, adrenal insufficiency or thyroid dysfunction. She has had CT Head, carotid duplex and EEG. She recalls her CT head showing a partially empty sella. She asks about its significance and whether it may be related to her POTS symptoms. She has never seen a neuromuscular subspecialist for neurological autonomic testing. Review of Systems I have performed a 14-point organ ROS with patient; pertinents are as per HPI. Past Medical History Past Medical History: Hypertension Additional Past Medical History / Comment(s): POTS, SVT History of Any Multi-Drug Resistant Organisms: None Reported Past Surgical History: Section, Tonsillectomy Additional Past Anesthesia/Blood Transfusion Reaction / Comment(s): POTS diagnosis Past Psychological History: No Psychological Hx Reported Smoking Status: Never smoker Past Alcohol Use History: None Reported Past Drug Use History: None Reported - Past Family History Mother Family Medical History: CVA/TIA, Myocardial Infarction ([place]), Renal Disease Additional Family Medical History / Comment(s): PVD Father History Unknown: Yes Medications and Allergies Home Medications Medication Instructions Recorded Confirmed Type LORazepam [Ativan] 1 mg PO BID PRN 03/06/19 03/29/19 History cloNIDine HCL [Catapres] 0.05 mg PO QID 03/06/19 03/29/19 History Allergies Allergy/AdvReac Type Severity Reaction Status Date / Time moxifloxacin [From Avelox] Allergy Unknown Verified 03/29/19 22:19 Penicillins Allergy Rash/Hives Verified 03/29/19 22:19 Sulfa (Sulfonamide Allergy Verified 03/29/19 22:19 Antibiotics) bupropion [From Wellbutrin] AdvReac Unknown Verified 03/29/19 22:19 Physical Examination - Vital Signs Vital Signs: Vital Signs Temp Pulse Pulse Resp BP BP BP 03/30/19 10:33 94 129/66 03/30/19 07:30 76 17 03/30/19 07:00 98.5 F 76 17 109/69 03/30/19 01:48 98.2 F 79 18 101/65 03/30/19 01:14 116/62 03/29/19 23:07 98.5 F 95 18 131/86 Pulse Ox 03/30/19 10:33 03/30/19 07:30 03/30/19 07:00 98 03/30/19 01:48 99 03/30/19 01:14 98 03/29/19 23:07 100 Intake and Output 03/29/19 03/30/19 03/30/19 22:59 06:59 14:59 Intake Total 1350 Balance 1350 Intake: Intake, IV Titration 1350 Amount Sodium Chloride 0.9% 1, 350 000 ml @ 100 mls/hr IV . Q10H ONE Rx#:[id number] Sodium Chloride 0.9% 1, 1000 000 ml @ 999 mls/hr IV . Q1H1M STA Rx#:[id number] Other: Voiding Method Toilet Toilet # Voids 2 Weight 78.018 kg Gen NAD Pleasant and cooperative HEENT NCAT Sclera without icterus O/P clear Neck Supple No carotid bruit Cor RRR no m/r/g Lungs CTAB Abd Soft NTND +BS Ext Warm to touch No edema Neuro MS A+Ox4 Normal fluency Able to follow all commands and articulate a detailed medical history without semantic or phonemic paraphasia CN II-XII grossly intact no nystagmus Motor Normal bulk/tone No tremors Strength 5/5 sym throughout Sens Intact to LT x4 No obvious neglect Coord No dysmetria on FTN bilaterally DTRs 2+/4 sym throughout Toes downgoing bilaterally No clonus at achilles Gait Deferred Results - Laboratory Findings CBC and BMP: 03/29/19 23:36 03/29/19 23:36 Abnormal Lab Findings: Abnormal Labs 03/29/19 03/29/19 23:36 23:36 WBC 14.7 H Neutrophils # 12.0 H Glucose 141 H Assessment and Plan Assessment: POTS, which is a more of a descriptive diagnosis. No specific etiology has been found thus far to explains her POTS according to patient. Plan: -As for partially empty sella (this is per patient's report as I do not have the CT Head report or neuroimages for personal review), she has already undergone significant endocrine testing (reportedly unrevealing per patient). The next step would be a lumbar puncture to measure her opening pressure, but there are no S+S of increased ICP, and patient is not keen on a spinal tap -Many of the neurological autonomic tests are done outpatient, such as EMG/NCS, skin punch biopsy to r/o small fiber neuropathy, QSART testing to look at sudomotor function, etc. -Would recommend that she be seen by a neuromuscular neurologist who specializes in autonomic dysfunction. These subspecialists are typically found in [facility]. I have asked that she look into [facility] neurology clinic first as this would be the closest to her -No other inpatient neuro recs at this time. Will revisit patient prn. Please call with new ?. Thank you for this consultation. Time with Patient: Greater than 30 (Time spent in direct patient care, greater than 50% of which was spent in [id number] counseling and coordination of care: 70 minutes)
[2019-03-30 14:17] LABS: ACTH 8.13 pg/mL (0.00-45.99)
[2019-03-30] MEDS: SODIUM CHLORIDE 0.9% 1,000 ML IV SCH (19:20)
--- NOTE | 2019-03-30 22:02 | P.HPIM ---
History of Present Illness H&P Date: 03/30/19 Ashley Christianson is a 39 yo F with PMH of POTS, HTN, SVT who presented to [facility] ED after experiencing worsening palpitations, dizziness, headaches and flushing. She states she follows with a Knitted Garment Finisher at [place] and recently had a loop recorder removed due to infection. She was diagnosed with POTS 2 years ago and no abnormal rhythm had been noted. Pt feels that having the loop recorder removed aggravated her POTS and she has been more symptomatic since it was removed. She states that for the past few months and worse over the past few days, she feels flushed and has palpitations after eating. She has been controlling her BP with clonidine patch, but during her POTS episodes her BP will rise as high as 220/120 and she will take extra clonidine and ativan. Pt denies chest pain or shortness of breath. In the ED her vitals were stable, EKG showed sinus rhythm, labs significant for WBC 14k, trop negative. Pt states she had been told that imaging of her head in the past noted empty sella and she would like that looked in to. Review of Systems All systems: negative Constitutional: Denies chills, Denies fever Eyes: denies blurred vision, denies pain Ears, nose, mouth and throat: Denies headache, Denies sore throat Cardiovascular: Reports high blood pressure, Reports lightheadedness, Reports palpitations, Reports rapid heart beat, Denies chest pain, Denies irregular heart beat, Denies phlebitis, Denies shortness of breath Respiratory: Denies cough Gastrointestinal: Denies abdominal pain, Denies diarrhea, Denies nausea, Denies vomiting Genitourinary: Denies dysuria, Denies hematuria Musculoskeletal: Denies myalgias Integumentary: Denies pruritus, Denies rash Neurological: Reports vertigo, Reports visual changes, Denies numbness, Denies weakness Psychiatric: Denies anxiety, Denies depression Endocrine: Denies fatigue, Denies weight change Past Medical History Past Medical History: Hypertension Additional Past Medical History / Comment(s): POTS, SVT History of Any Multi-Drug Resistant Organisms: None Reported Past Surgical History: Section, Tonsillectomy Additional Past Anesthesia/Blood Transfusion Reaction / Comment(s): POTS diagnosis Past Psychological History: No Psychological Hx Reported Smoking Status: Never smoker Past Alcohol Use History: None Reported Past Drug Use History: None Reported - Past Family History Mother Family Medical History: CVA/TIA, Myocardial Infarction ([place]), Renal Disease Additional Family Medical History / Comment(s): PVD Father History Unknown: Yes Medications and Allergies Home Medications Medication Instructions Recorded Confirmed Type LORazepam [Ativan] 1 mg PO BID PRN 03/06/19 03/29/19 History cloNIDine HCL [Catapres] 0.05 mg PO QID 03/06/19 03/29/19 History Allergies Allergy/AdvReac Type Severity Reaction Status Date / Time moxifloxacin [From Avelox] Allergy Unknown Verified 03/29/19 22:19 Penicillins Allergy Rash/Hives Verified 03/29/19 22:19 Sulfa (Sulfonamide Allergy Verified 03/29/19 22:19 Antibiotics) bupropion [From Wellbutrin] AdvReac Unknown Verified 03/29/19 22:19 Physical Exam Vitals: Vital Signs Temp Pulse Pulse Resp BP BP BP 03/30/19 19:01 98.4 F 100 18 105/71 03/30/19 15:00 97.9 F 79 16 106/72 03/30/19 10:33 94 129/66 03/30/19 07:30 76 17 03/30/19 07:00 98.5 F 76 17 109/69 03/30/19 01:48 98.2 F 79 18 101/65 03/30/19 01:14 116/62 03/29/19 23:07 98.5 F 95 18 131/86 Pulse Ox 03/30/19 19:01 03/30/19 15:00 100 03/30/19 10:33 03/30/19 07:30 03/30/19 07:00 98 03/30/19 01:48 99 03/30/19 01:14 98 03/29/19 23:07 100 Intake and Output 03/30/19 03/30/19 03/30/19 06:59 14:59 22:59 Intake Total 1350 Balance 1350 Intake: Intake, IV Titration 1350 Amount Sodium Chloride 0.9% 1, 350 000 ml @ 100 mls/hr IV . Q10H ONE Rx#:[id number] Sodium Chloride 0.9% 1, 1000 000 ml @ 999 mls/hr IV . Q1H1M STA Rx#:[id number] Other: Voiding Method Toilet Toilet # Voids 2 1 Weight 78.018 kg Gen. Well-developed well-nourished no apparent distress. Vitals reviewed HEENT. normocephalic, atraumatic. TMs clear. Mucous membranes moist Neck. Supple, no thyromegaly, no JVD CV. Regular rate and rhythm, no murmur. Peripheral pulses 2+ Lungs. Normal inspiratory effort, clear throughout Abdomen. Soft, nontender, nondistended, no organomegaly Extremity. No cyanosis, clubbing or edema Neuro. Alert and oriented 3, no focal deficits Skin. Warm and dry Results CBC & Chem 7: 03/29/19 23:36 03/29/19 23:36 Labs: Abnormal Lab Results - Last 24 Hours (Table) 03/29/19 03/29/19 Range/Units 23:36 23:36 WBC 14.7 H (3.8-10.6) k/uL Neutrophils # 12.0 H (1.3-7.7) k/uL Glucose 141 H (74-99) mg/dL Thrombosis Risk Factor Assmnt - Choose All That Apply Each Factor Represents 1 point: Abnormal pulmonary function (COPD), Age 41-60 years, Obesity (BMI >25) Thrombosis Risk Factor Assessment Total Risk Factor Score: 3 Thrombosis Risk Factor Assessment Level: Moderate Risk Assessment and Plan (1) Hypertension Current Visit: Yes Status: Acute Code(s): I10 - ESSENTIAL (PRIMARY) HYPERTENSION SNOMED Code(s): 59880109 (2) Dizziness Current Visit: Yes Status: Acute Code(s): R42 - DIZZINESS AND GIDDINESS SNOMED Code(s): 531287306 (3) POTS (postural orthostatic tachycardia syndrome) Current Visit: Yes Status: Acute Code(s): R00.0 - TACHYCARDIA, UNSPECIFIED; I95.1 - ORTHOSTATIC HYPOTENSION SNOMED Code(s): 272620477 (4) Palpitations Current Visit: Yes Status: Acute Code(s): R00.2 - PALPITATIONS SNOMED Code(s): 43433644 Plan: 1. Dizziness, palpitations. Likely secondary to POTS. Pituitary testing normal. Cardiology consulted. Continue clonidine patch with clonidine PO for reba kthrough POTS episode. Neurology evaluation 2. POTS. Continue IVF DVT prophylaxis SCDs
[2019-03-31] MEDS: SODIUM CHLORIDE 0.9% 1,000 ML IV SCH (03:07)
[2019-03-31 07:31] LABS: HCT 34.7 % (34.0-46.0); HGB 11.7 gm/dL (11.4-16.0); MCH 29.6 pg (25.0-35.0); MCHC 33.7 g/dL (31.0-37.0); MCV 87.7 fL (80.0-100.0); Mean Platelet Volume 6.7; Platelet Count 299 k/uL (150-450); RBC 3.96 m/uL (3.80-5.40); RDW 12.8 % (11.5-15.5); WBC 8.8 k/uL (3.8-10.6)
[2019-03-31 07:44] VITALS: BP 132/87; PULSE 82; RESP 17; TEMP 98.5
[2019-03-31] MEDS: LORazepam 0.5 MG TAB PO PRN (07:50)
--- NOTE | 2019-03-31 11:23 | P.PN ---
Subjective This is a pleasant 39-year-old female past medical history significant for postural orthostatic tachycardia syndrome, hypertension and paroxysmal SVT. She is seen and examined sitting up in bed in no acute distress. She states just prior to us walking in her room she had an episode of flushing and dizziness. Telemetry tracings reviewed at that time unremarkable showing persistent sinus mechanism with heart rate in the 80's. Blood pressure 132/87. Vital signs have remained stable and normal with no tachy-arrhythmias noted. She denies chest pain, shortness of breath, nausea, vomiting or diaphoresis. GENERAL: This is a 39-year-old female in no apparent distress at the time of my examination. HEENT: Head is atraumatic, normocephalic. Pupils are equal, round. Sclerae anicteric. Conjunctivae are clear. Mucous membranes of the mouth are moist. Neck is supple. There is no jugular venous distention. No carotid bruit is heard. LUNGS: Clear to auscultation no wheezes, rales or rhonchi. No chest wall tenderness is noted on palpation or with deep breathing. HEART: Regular rate and rhythm without murmurs, rubs or gallops. S1 and S2 heard. EXTREMITIES: No evidence of peripheral edema and no calf tenderness noted. ASSESSMENT Postural orthostatic tachycardia syndrome, symptomatic. Telemetry unremarkable. Headache Leukocytosis PLAN No telemetry evidence to suggest tachycardia or arrhythmia since admission. Stable from a cardiac perspective. Nurse Practitioner note has been reviewed, I agree with a documented findings and plan of care. Patient was seen and examined. Objective - Vital Signs Vital signs: Vital Signs Temp 98.5 F 03/31/19 07:00 Pulse 82 03/31/19 07:30 Resp 17 03/31/19 07:30 BP 132/87 03/31/19 07:00 Pulse Ox 98 03/31/19 07:00 Intake & Output 03/30/19 03/31/19 03/31/19 18:59 06:59 18:59 Intake Total 1800 Balance 1800 Intake: Intake, IV Titration 1500 Amount Sodium Chloride 0.9% 1, 1500 000 ml @ 125 mls/hr IV . Q8H FILIBERTO Rx#:[id number] Oral 300 Other: Voiding Method Toilet Toilet Toilet # Voids 1 1 - Labs CBC & Chem 7: 03/31/19 06:25 03/29/19 23:36
--- NOTE | 2019-03-31 16:08 | P.DS ---
Providers Date of admission: 03/30/19 00:43 Expected date of discharge: 03/31/19 Attending physician: Keaton Bowen MD Consults: 03/30/19 10:26 Consult Physician Routine Consulting Provider: Elroy Au Consult Reason/Comments: POTS Do you want consulting provider notified?: Yes 03/30/19 10:27 Consult Physician Routine Consulting Provider: Maegan Robles Consult Reason/Comments: POTS Do you want consulting provider notified?: Yes Primary care physician: [facility] Hospital Course: Final Diagnoses: (1) Hypertension Current Visit: Yes Status: Acute Code(s): I10 - ESSENTIAL (PRIMARY) HYPERTENSION SNOMED Code(s): 51840949 (2) Dizziness,likely secondary to POTS Current Visit: Yes Status: Acute Code(s): I10 - ESSENTIAL (PRIMARY) HYPERTENSION SNOMED Code(s): 75333634 (3) POTS (postural orthostatic tachycardia syndrome) Current Visit: Yes Status: Acute Code(s): R00.0 - TACHYCARDIA, UNSPECIFIED; I95.1 - ORTHOSTATIC HYPOTENSION SNOMED Code(s): 382283383 (4) Palpitations Current Visit: Yes Status: Acute Code(s): R00.2 - PALPITATIONS SNOMED Code(s): 89481052 Current Visit: Yes Status: Acute Code(s): R42 - DIZZINESS AND GIDDINESS SNOMED Code(s): 198054139 (3) POTS (postural orthostatic tachycardia syndrome) Current Visit: Yes Status: Acute Code(s): R00.0 - TACHYCARDIA, UNSPECIFIED; I95.1 - ORTHOSTATIC HYPOTENSION SNOMED Code(s): 583083206 (4) Palpitations Current Visit: Yes Status: Acute Code(s): R00.2 - PALPITATIONS SNOMED Code(s): 72949507 Hospital course:Ashley Christianson is a 39 yo F with PMH of POTS, HTN, SVT who presented to [facility] ED after experiencing worsening palpitations, dizziness, headaches and flushing. She states she follows with a Industrial Waste Inspector at [place] and recently had a loop recorder removed due to infection. She was diagnosed with POTS 2 years ago and no abnormal rhythm had been noted. Pt feels that having the loop recorder removed aggravated her POTS and she has been more symptomatic since it was removed. She states that for the past few months and worse over the past few days, she feels flushed and has palpitations after eating. She has been controlling her BP with clonidine patch, but during her POTS episodes her BP will rise as high as 220/120 and she will take extra clonidine and ativan. Pt denies chest pain or shortness of breath. In the ED her vitals were stable, EKG showed sinus rhythm, labs significant for WBC 14k, trop negative. Pt states she had been told that imaging of her head in the past noted empty sella and she would like that looked in to. pituitary testing normal. Evaluated by cardiology and neurology. Telemetry unremarkable. Converted oral clonidine 2 clonidine patchfor better control of pots episodes.Significant clinical improvement.Cleared by all consults for discharge. Patient is being discharged home in stable condition with guarded prognosis. EXAM:Gen.alert and oriented 3, no acute distress CV. regular S1-S2, no murmur, no edema. Lungs.unlabored, Normal inspiratory effort, clear throughout Abdomen. Soft, nontender, nondistended, no organomegaly Neuro. no focal deficits The impression and plan of care has been dictated as directed. : I performed a history and examination of this patient, discussed the same with the dictator. I agree with the dictator's note ,documented as a scribe. Any additional findings or plans will be noted. Time taken: 35 minutes Patient Condition at Discharge: Stable Plan - Discharge Summary Discharge Rx Participant: No New Discharge Prescriptions: New cloNIDine 0.1 MG/24HR PATCH [Catapres-TTS] 1 patch TRANSDERM Q7D #4 patch No Action LORazepam [Ativan] 1 mg PO BID PRN PRN Reason: Anxiety Discharge Medication List LORazepam [Ativan] 1 mg PO BID PRN 03/06/19 [History] cloNIDine 0.1 MG/24HR PATCH [Catapres-TTS] 1 patch TRANSDERM Q7D #4 patch 03/31/19 [Rx] Follow up Appointment(s)/Referral(s): NeurologistDr. patient's own [Other] - 1 Week Industrial Waste InspectorDr. Patient's OWN [Other] - 1 Week Liset Ramírez MD [Primary Care Provider] - 1 Week (patient prefers to self schedule ) Patient Instructions/Handouts: Dizziness (GEN) Discharge Disposition: HOME SELF-CARE
== END 2019-03-31 11:10 | disposition home or self-care (01) ==
LOC: EC 22:13 → 4SSUR 03-30 00:43
PROVIDERS: ADMIT Family Medicine; ATTEND Family Medicine
DX: I49.8 Other specified cardiac arrhythmias (principal); E86.0 Dehydration; I10 Essential (primary) hypertension; I47.1 Supraventricular tachycardia; R55 Syncope and collapse; D72.829 Elevated white blood cell count, unspecified; E66.9 Obesity, unspecified; Z68.31 Body mass index [BMI] 31.0-31.9, adult; R53.1 Weakness; Z79.899 Other long term (current) drug therapy; Z88.0 Allergy status to penicillin; Z88.1 Allergy status to other antibiotic agents; Z88.2 Allergy status to sulfonamides; Z88.8 Allergy status to other drugs, medicaments and biological substances; I45.10 Unspecified right bundle-branch block; Z82.49 Family history of ischemic heart disease and other diseases of the circulatory system; Z84.1 Family history of disorders of kidney and ureter; Z82.3 Family history of stroke
CPT/HCPCS: 96361 ×2; 96360; 99285; 36415; 93005; 84300; 83930; 83880; 80053; 84443; 84133; 82330; 82533; 83001; 82550; 83605; 83735; 84100; 84484; 85025; 85027; 81003; 83935; 82024; 71046; G0378 ×2

== ENCOUNTER 2019-06-01 11:28 | Emergency (ER) | payer OTHER ==
[2019-06-01 11:44] VITALS: TEMP 98.1
[2019-06-01] MEDS ORDERED: SODIUM CHLORIDE 0.9% 1,000 ML IV ONE (11:47)
--- NOTE | 2019-06-01 11:53 | ED ---
General Adult HPI - General Chief complaint: Allergic Reaction Stated complaint: Allergic reaction Time Seen by Provider: 06/01/19 11:28 Source: patient, EMS, RN notes reviewed, old records reviewed Mode of arrival: EMS Limitations: no limitations - History of Present Illness Initial comments: This a 39-year-old female who presents emergency Department complaining of having symptoms after she ate oatmeal. Patient states she started feeling tingling in her face and itching all over her body. Patient states she just recently spent 5 days [facility] and they told her that it's possible that she has mass cell disorder. Patient then showed me a protocol that she should follow and it discussed what medication should be given if she has symptoms. Patient implied that it was from [facility] however when I questioned her about which Dr. Pugh to her she eventually told me that no doctor gave at her that she looked it up on the Internet. Patient currently is having no difficulty breathing and no chest pain. Patient states she itches all over. Patient states she gave herself 1 epi and 50 of Benadryl EMS also gave her 50 of Benadryl 60 Solu-Medrol. Patient wants another epi currently even though she is having no throat closure and no difficulty breathing. Patient is very anxious. Patient can't remember any of the doctors names that saw her at the [facility] - Related Data Home Medications Medication Instructions Recorded Confirmed LORazepam [Ativan] 0.5 mg PO BID PRN 03/06/19 06/01/19 Famotidine [Pepcid AC] 10 mg PO BID 06/01/19 06/01/19 Loratadine [Claritin] 10 mg PO BID 06/01/19 06/01/19 cloNIDine HCL [Catapres] 0.05 mg PO BID 06/01/19 06/01/19 Allergies Allergy/AdvReac Type Severity Reaction Status Date / Time moxifloxacin [From Avelox] Allergy Unknown Verified 06/01/19 13:01 Penicillins Allergy Rash/Hives Verified 06/01/19 13:01 Sulfa (Sulfonamide Allergy Verified 06/01/19 13:01 Antibiotics) bupropion [From Wellbutrin] AdvReac Unknown Verified 06/01/19 13:01 Review of Systems ROS Statement: Those systems with pertinent positive or pertinent negative responses have been documented in the HPI. ROS Other: All systems not noted in ROS Statement are negative. Past Medical History Past Medical History: Hypertension Additional Past Medical History / Comment(s): POTS, SVT, Mass cell activation History of Any Multi-Drug Resistant Organisms: None Reported Past Surgical History: Section, Tonsillectomy Additional Past Anesthesia/Blood Transfusion Reaction / Comment(s): POTS diagnosis Past Psychological History: No Psychological Hx Reported Smoking Status: Never smoker Past Alcohol Use History: None Reported Past Drug Use History: None Reported - Past Family History Mother Family Medical History: CVA/TIA, Myocardial Infarction ([place]), Renal Disease Additional Family Medical History / Comment(s): PVD Father History Unknown: Yes General Exam - General Exam Comments Initial Comments: GENERAL: Patient is well-developed and well-nourished. Patient is nontoxic and well- hydrated and is in mild distress. ENT: Neck is soft and supple. No significant lymphadenopathy is noted. Oropharynx is clear. Moist mucous membranes. Neck has full range of motion without eliciting any pain. EYES: The sclera were anicteric and conjunctiva were pink and moist. Extraocular movements were intact and pupils were equal round and reactive to light. Eyelids were unremarkable. PULMONARY: Unlabored respirations. Good breath sounds bilaterally. No audible rales rhonchi or wheezing was noted. CARDIOVASCULAR: Patient is tachycardic at approximately 120 beats a minute ABDOMEN: Soft and nontender with normal bowel sounds. No palpable organomegaly was noted. There is no palpable pulsatile mass. SKIN: Skin is clear with no lesions or rashes and otherwise unremarkable. NEUROLOGIC: Patient is alert and oriented x3. Cranial nerves II through XII are grossly intact. Motor and sensory are also intact. Normal speech, volume and content. Symmetrical smile. MUSCULOSKELETAL: Normal extremities with adequate strength and full range of motion. No lower extremity swelling or edema. No calf tenderness. LYMPHATICS: No significant lymphadenopathy is noted PSYCHIATRIC: Very anxious Limitations: no limitations Course Vital Signs 06/01/19 06/01/19 06/01/19 11:30 11:31 11:40 Temperature 98.1 F Pulse Rate 140 H 134 H Respiratory 20 18 Rate Blood Pressure 172/94 172/94 O2 Sat by Pulse 96 95 98 Oximetry 06/01/19 06/01/19 06/01/19 11:50 12:00 12:09 Temperature Pulse Rate 142 H Respiratory 18 20 20 Rate Blood Pressure 172/94 172/94 O2 Sat by Pulse 95 95 Oximetry 06/01/19 06/01/19 12:10 13:28 Temperature Pulse Rate 129 H 105 H Respiratory 20 18 Rate Blood Pressure 116/82 144/84 O2 Sat by Pulse 95 96 Oximetry Medical Decision Making - Medical Decision Making EKG shows sinus tachycardia at 135 bpm [place] interval 136 dresses 82 QT interval 376. Patient had taken the epinephrine in route to the hospital before the ambulance met up with the car she was in. Dr. Tobias from [facility] as well as Dr. Garcia from the [facility] were contacted and they both agree that the patient does not have a mast cell disorder. I will back into the room the patient was oxygenating 100% on room air heart rate was down to 110 beats a minutes patient had no rashes or hives and patient was much calmer. Patient was upset that I stated she did not have a mast cell disorder based on what the instrument specialist told me and patient has an appointment with Dr. Garcia as well as a GI doctor as well as a vascular surgeon. At no time was the patient ever in any respiratory distress while in the emergency department and was never hypotensive. Patient will be diagnosed wit h ALLERGIC reaction. She insists that the oatmeal caused this event I have no proof of this but I do lack a definitive diagnosis. - Lab Data Result diagrams: 06/01/19 12:34 06/01/19 12:34 Lab Results 06/01/19 06/01/19 Range/Units 12:34 12:34 WBC 14.7 H (3.8-10.6) k/uL RBC 4.59 (3.80-5.40) m/uL Hgb 13.5 (11.4-16.0) gm/dL Hct 40.9 (34.0-46.0) % MCV 89.2 (80.0-100.0) fL MCH 29.5 (25.0-35.0) pg MCHC 33.0 (31.0-37.0) g/dL RDW 11.8 (11.5-15.5) % Plt Count 453 H (150-450) k/uL Neutrophils % 81 % Lymphocytes % 15 % Monocytes % 3 % Eosinophils % 0 % Basophils % 1 % Neutrophils # 11.9 H (1.3-7.7) k/uL Lymphocytes # 2.1 (1.0-4.8) k/uL Monocytes # 0.4 (0-1.0) k/uL Eosinophils # 0.0 (0-0.7) k/uL Basophils # 0.1 (0-0.2) k/uL Sodium 141 (137-145) mmol/L Potassium 3.5 (3.5-5.1) mmol/L Chloride 105 (98-107) mmol/L Carbon Dioxide 23 (22-30) mmol/L Anion Gap 13 mmol/L BUN 8 (7-17) mg/dL Creatinine 0.68 (0.52-1.04) mg/dL Est GFR (CKD-EPI)AfAm >90 (>60 ml/min/1.73 sqM) Est GFR (CKD-EPI)NonAf >90 (>60 ml/min/1.73 sqM) Glucose 156 H (74-99) mg/dL Calcium 10.2 (8.4-10.2) mg/dL Total Bilirubin 0.8 (0.2-1.3) mg/dL AST 137 H (14-36) U/L ALT 241 H (9-52) U/L Alkaline Phosphatase 81 (38-126) U/L Total Protein 7.5 (6.3-8.2) g/dL Albumin 4.5 (3.5-5.0) g/dL Disposition Clinical Impression: Allergic reaction Disposition: HOME SELF-CARE Condition: Good Instructions (If sedation given, give patient instructions): General Allergic Reaction (ED) Additional Instructions: Patient should avoid epinephrine until she follows up with cardiology Is patient prescribed a controlled substance at d/c from ED?: No Referrals: None,Stated [Primary Care Provider] - 1-2 days Time of Disposition: 13:21
[2019-06-01 12:46] LABS: Basophils # (A) 0.1 k/uL (0-0.2); Basophils % (A) 1 %; Eosinophils % (A) 0 %; HCT 40.9 % (34.0-46.0); HGB 13.5 gm/dL (11.4-16.0); Lymphocytes # (A) 2.1 k/uL (1.0-4.8); Lymphocytes % (A) 15 %; MCH 29.5 pg (25.0-35.0); MCV 89.2 fL (80.0-100.0); Mean Platelet Volume 6.7; Monocytes # (A) 0.4 k/uL (0-1.0); Monocytes % (A) 3 %; Neutrophils # (A) 11.9 k/uL (1.3-7.7); Neutrophils % (A) 81 %; Platelet Count 453 k/uL (150-450); RBC 4.59 m/uL (3.80-5.40); RDW 11.8 % (11.5-15.5); WBC 14.7 k/uL (3.8-10.6)
[2019-06-01 12:54] LABS: ALT 241 U/L (9-52); AST 137 U/L (14-36); African American GFR (CKD) >90 (>60 ml/min/1.73 sqM); Albumin 4.5 g/dL (3.5-5.0); Alkaline Phosphatase 81 U/L (38-126); Anion Gap 13 mmol/L; Blood Urea Nitrogen 8 mg/dL (7-17); Calcium 10.2 mg/dL (8.4-10.2); Carbon Dioxide 23 mmol/L (22-30); Chloride 105 mmol/L (98-107); Glucose 156 mg/dL (74-99); Non-African American GFR(CKD) >90 (>60 ml/min/1.73 sqM); Potassium 3.5 mmol/L (3.5-5.1); Sodium 141 mmol/L (137-145); Total Bilirubin 0.8 mg/dL (0.2-1.3); Total Protein 7.5 g/dL (6.3-8.2)
[2019-06-01 13:29] VITALS: BP 144/84; PULSE 105; RESP 18
== END 2019-06-01 13:40 | disposition home or self-care (01) ==
LOC: EC 11:28
DX: T78.40XA Allergy, unspecified, initial encounter (principal); R00.0 Tachycardia, unspecified; I10 Essential (primary) hypertension; Z79.899 Other long term (current) drug therapy; Z88.0 Allergy status to penicillin; Z88.2 Allergy status to sulfonamides; Z88.8 Allergy status to other drugs, medicaments and biological substances; Z88.1 Allergy status to other antibiotic agents
CPT/HCPCS: 36415; 80053; 85025; 93005; 96360; 99284